=== PATIENT | female | born 1955 | race African-American/Black ===

== ENCOUNTER 2016-10-25 10:05 | Emergency (ER) | payer SELFPAY ==
[2016-10-25] MEDS ORDERED: IPRATRPIUM/ALBUTEROL 0.5/2.5MG 3 ML NEBU. NEB ONE (10:30)
[2016-10-25] MEDS ORDERED: methylPREDNISolone SOD SUCC PF 125 MG/2 ML VIAL. IV ONE (10:30)
--- NOTE | 2016-10-25 10:57 | RAD ---
Portable chest, 10/25/2016: History: Shortness of breath Comparison is made to a study from 04/09/2012. The heart size and pulmonary vascularity are normal. There are prominent stiven calcifications in the mediastinum and at the right hilum compatible with old granulomatous disease. There is tortuosity and calcific plaquing of the thoracic aorta. There is a calcified granuloma in the right parahilar region. No acute infiltrates are seen. There is no evidence of pleural fluid. IMPRESSION: No acute cardiopulmonary abnormality is detected.
[2016-10-25 11:00] LABS: BASO # 0.1 x10^3/uL (0.0-0.2); BASO % 1 % (0-3); EOS % 4 % (0-3); HEMOGLOBIN 14.2 g/dL (12.0-15.5); LYMPH % 30 % (24-48); MEAN CORPUSCULAR HEMOGLOBIN 27 pg (25-35); MEAN CORPUSCULAR HGB CONC 34 g/dL (31-37); MEAN CORPUSCULAR VOLUME 81 fL (79-100); MONO % 8 % (0-9); NEUT % 57 % (31-73); PLATELET COUNT 280 x10^3/uL (140-400); RED BLOOD COUNT 5.21 x10^6/uL (3.50-5.40); RED CELL DISTRIBUTION WIDTH 17.6 % (11.5-14.5); WHITE BLOOD COUNT 6.9 x10^3/uL (4.0-11.0)
[2016-10-25 11:11] LABS: CALCIUM 9.4 mg/dL (8.5-10.1); CREATININE 1.7 mg/dL (0.6-1.0); POTASSIUM 3.7 mmol/L (3.5-5.1)
[2016-10-25 11:18] LABS: ALBUMIN 3.8 g/dL (3.4-5.0); ALBUMIN/GLOBULIN RATIO 0.9 (1.0-1.7); TOTAL BILIRUBIN 0.4 mg/dL (0.2-1.0); TOTAL PROTEIN 8.2 g/dL (6.4-8.2)
--- NOTE | 2016-10-25 11:29 | ED.ADGEN ---
Past Medical History Past Medical History: COPD, Hypertension Past Surgical History: Other Alcohol Use: Occasionally Drug Use: None Adult General Chief Complaint Chief Complaint: SHORTNESS OF BREATH HPI HPI Patient is a 61 year old woman, history of COPD, hypertension, who presents to the emergency department with complaint of shortness of breath. Patient states that she been feeling short of breath several days ago, she ran out of her inhalers. She is recently moved to the area does not a primary care provider. Patient complaining of wheezing, nonproductive cough, denies any fevers, any chills, any chest pain, any nausea or vomiting, any sick contacts or exposures. No recent travel or surgery, no history of DVT or PE. She states that she takes albuterol and Spiriva and "purple pill" at home for her asthma. Review of Systems Review of Systems Constitutional: Denies fever or chills. [] Eyes: Denies change in visual acuity. [] HENT: Denies nasal congestion or sore throat. [] Respiratory: Nonproductive cough, shortness of breath worsening over the past several days. Cardiovascular: Denies chest pain or edema. [] GI: Denies abdominal pain, nausea, vomiting, bloody stools or diarrhea. [] : Denies dysuria. [] Musculoskeletal: Denies back pain or joint pain. [] Integument: Denies rash. [] Neurologic: Denies headache, focal weakness or sensory changes. [] Endocrine: Denies polyuria or polydipsia. [] Lymphatic: Denies swollen glands. [] Psychiatric: Denies depression or anxiety. [] Current Medications Current Medications Current Medications Medications (Trade) Dose Ordered Sig/Summer Start Time Stop Time Status Last Admin Dose Admin Albuterol/ Ipratropium (Duoneb) 3 ml 1X ONCE 10/25/16 10:30 10/25/16 10:31 DC 10/25/16 10:23 3 ML Methylprednisolone Sodium Succinate (Solu-Medrol 125mg Vial) 125 mg 1X ONCE 10/25/16 10:30 10/25/16 10:31 DC 10/25/16 10:37 125 MG Allergies Allergies Allergies Coded Allergies Type Severity Reaction Last Updated Verified No Known Drug Allergies 10/25/16 No Physical Exam Physical Exam Constitutional: Well developed, well nourished, anxious, mild respiratory distress, non-toxic appearance. [] HENT: Normocephalic, atraumatic, bilateral external ears normal, oropharynx moist, no oral exudates, nose normal. [] Eyes: PERRLA, EOMI, conjunctiva normal, no discharge. [] Neck: Normal range of motion, no tenderness, supple, no stridor. [] Cardiovascular:Heart rate regular rhythm, no murmur, S1, S2, mild tachycardic. No rubs or gallops. [] Lungs & Thorax: Diminished breath sounds at bases bilaterally, mild scattered wheezing noted, no rhonchi or rales. No chest wall tenderness or crepitus. [] Abdomen: Bowel sounds normal, soft, no rebound, rigidity, no guarding, no tenderness, no masses, no pulsatile masses. [] Skin: Warm, dry, no erythema, no rash. [] Back: No tenderness, no CVA tenderness. [] Extremities: No tenderness, no cyanosis, no clubbing, ROM intact, no edema. Negative Homans sign. [] Neurologic: Alert and oriented X 3, normal motor function, normal sensory function, no focal deficits noted. [] Psychologic: Affect normal, judgement normal, mood normal. [] Current Patient Data Vital Signs Vital Signs Date Time Temp Pulse Resp B/P Pulse Ox O2 Delivery O2 Flow Rate FiO2 10/25/16 11:43 90 126/84 97 10/25/16 10:25 Nasal Cannula 2.0 10/25/16 10:20 98.0 28 98.0 Lab Values Laboratory Tests Test 10/25/16 10:43 10/25/16 11:05 White Blood Count 6.9x10^3/uL (4.0-11.0) Red Blood Count 5.21x10^6/uL (3.50-5.40) Hemoglobin 14.2g/dL (12.0-15.5) Hematocrit 42.0% (36.0-47.0) Mean Corpuscular Volume 81fL (79-100) Mean Corpuscular Hemoglobin 27pg (25-35) Mean Corpuscular Hemoglobin Concent 34g/dL (31-37) Red Cell Distribution Width 17.6% (11.5-14.5) H Platelet Count 280x10^3/uL (140-400) Neutrophils (%) (Auto) 57% (31-73) Lymphocytes (%) (Auto) 30% (24-48) Monocytes (%) (Auto) 8% (0-9) Eosinophils (%) (Auto) 4% (0-3) H Basophils (%) (Auto) 1% (0-3) Neutrophils # (Auto) 4.0x10^3uL (1.8-7.7) Lymphocytes # (Auto) 2.0x10^3/uL (1.0-4.8) Monocytes # (Auto) 0.6x10^3/uL (0.0-1.1) Eosinophils # (Auto) 0.3x10^3/uL (0.0-0.7) Basophils # (Auto) 0.1x10^3/uL (0.0-0.2) Sodium Level 144mmol/L (136-145) Potassium Level 3.7mmol/L (3.5-5.1) Chloride Level 105mmol/L (98-107) Carbon Dioxide Level 30mmol/L (21-32) Anion Gap 9 (6-14) Blood Urea Nitrogen 13mg/dL (7-20) Creatinine 1.7mg/dL (0.6-1.0) H Estimated GFR (Cockcroft-Gault) 37.0 BUN/Creatinine Ratio 8 (6-20) Glucose Level 106mg/dL (70-99) H Calcium Level 9.4mg/dL (8.5-10.1) Total Bilirubin 0.4mg/dL (0.2-1.0) Aspartate Amino Transferase (AST) 25U/L (15-37) Alanine Aminotransferase (ALT) 27U/L (14-59) Alkaline Phosphatase 99U/L (46-116) Troponin I Quantitative < 0.017ng/mL (0.000-0.055) BA-Rrm-D-Type Natriuretic Peptide 43pg/mL (0-124) Total Protein 8.2g/dL (6.4-8.2) Albumin 3.8g/dL (3.4-5.0) Albumin/Globulin Ratio 0.9 (1.0-1.7) L Influenza Type A Antigen Negative (NEGATIVE) Influenza Type B Antigen Negative (NEGATIVE) Laboratory Tests 10/25/16 10:43 Laboratory Tests 10/25/16 10:43 EKG EKG EC: Sinus tachycardia, heart rate 110 beats minute, left axis deviation, QTC of 477, ID 1:30, QRS of 90, moderate baseline artifact noted secondary to respiratory motion. No ST elevations or depressions, no evidence of acute ST abnormalities. Does not meet STEMI criteria. As interpreted by me. Radiology/Procedures Radiology/Procedures [] [facility] [address] [place] [address] IMAGING REPORT Signed PATIENT: WILMER SUAREZ ACCOUNT: [id number] : 1955 LOCATION: ER AGE: 61 SEX: F EXAM STATUS: REG ER ORD. PHYSICIAN: AZUCENA PHIPPS DO REASON: SOA PROCEDURE: PORTABLE CHEST 1V Portable chest, 10/25/2016: History: Shortness of breath Comparison is made to a study from 04/09/2012. The heart size and pulmonary vascularity are normal. There are prominent stiven calcifications in the mediastinum and at the right hilum compatible with old granulomatous disease. There is tortuosity and calcific plaquing of the thoracic aorta. There is a calcified granuloma in the right parahilar region. No acute infiltrates are seen. There is no evidence of pleural fluid. IMPRESSION: No acute cardiopulmonary abnormality is detected. DICTATED and SIGNED BY: ISA GERMAIN MD DATE: 10/25/16 1050 CC: AZUCENA PHIPPS DO; NO PCP ~ Course & Med Decision Making Course & Med Decision Making Pertinent Labs and Imaging studies reviewed. (See chart for details) Once patient became less anxious, respiratory rate improved improved, oxygen saturation at that point in 2 L was 99-100%. Symptoms began after she ran out of her medication, and also with the weather changes. Patient received a DuoNeb in the ED, and a dose of Solu-Medrol. On reevaluation she states she feels "10 times better". Patient ambulated in the emergency department, oxygen saturation between 92-95%, heart rate in the 90s to low 100s, after receiving albuterol. She denies any shortness of breath or other concerns. Patient states she is ready to be discharged home. I did discuss with the patient that she'll need to establish a new primary care provider, and she was given a list of available providers in the area. Patient has all medications at home except for her cerebral and her albuterol inhaler, therefore she was written a prescription for these 2 medications, and also for a 4 day course of prednisone , 40 mg once daily. We did discuss concerning symptoms that prompt return to the emergency department, patient voiced understanding and agreement, discharged home in stable condition with plan as above. Dragon Disclaimer Dragon Disclaimer This electronic medical record was generated, in whole or in part, using a voice recognition dictation system. Departure Impression: Primary Impression: COPD with exacerbation Disposition: HOME, SELF-CARE Condition: IMPROVED Scripts Prednisone 20 Mg Tablet2 Tab PO DAILY #8 TAB Prov:AZUCENA PHIPPS DO 10/25/16 Albuterol Sulfate (Ventolin Hfa Inhaler)18 Gm Hfa.aer.ad2 Puff INH Q4HRS FOR ASTHMA #1 INHALER Ref 0 Prov:AZUCENA PHIPPS DO 10/25/16 Tiotropium [place] (Spiriva)18 Mcg Cap.w.dev1 Cap IH DAILY #30 CAP Ref 0 Prov:AZUCENA PHIPPS DO 10/25/16 AZUCENA PHIPPS DO Oct 25, 2016 11:29
[2016-10-25 11:43] VITALS: BP 126/84
[2016-10-25 11:48] LABS: OBC FLU VALID
--- NOTE | 2016-10-25 12:23 | EKG ---
[facility] [address] [place] [address] Test Date: 2016-10-25 Test Time: 10:43:27 Pat Name: WILMER SUAREZ Department: Room: Gender: F [employer]: : 1955 Requested By: AZUCENA PHIPPS Order Number: [id number] Reading MD: Marika Shaw Measurements Intervals [place] Rate: 110 P: 38 TX: 130 QRS: -17 QRSD: 90 T: 87 QT: 348 QTc: 477 Interpretive Statements SINUS TACHYCARDIA LEFTWARD AXIS QRS(T) CONTOUR ABNORMALITY CONSIDER ANTEROLATERAL MYOCARDIAL DAMAGE RI6.01 Unconfirmed report Compared to ECG 04/09/2012 14:42:10 Left-axis deviation now present Electronically Signed On 10-28-2016 20:04:44 [employer] by Marika Shaw
[2016-10-25] MEDS ORDERED: VENTOLIN HFA18 GM INH (12:41)
[2016-10-25] MEDS ORDERED: TIOT18CA IH (12:41)
[2016-10-25] MEDS ORDERED: PRED20TA PO (12:41)
== END 2016-10-25 13:12 | disposition home or self-care (01) ==
LOC: ER 10:05
DX: J44.1 Chronic obstructive pulmonary disease with (acute) exacerbation (principal); I10 Essential (primary) hypertension
CPT/HCPCS: 36415; 71010; 80053; 83880; 84484; 85027; 87804; 93005; 94640; 96374; 99285; J2930; J7620

== ENCOUNTER 2018-03-13 12:26 | Emergency (ER) | payer OTHER | END 2018-03-13 12:51 | disposition home or self-care (01) | LOC: ER 12:26 | DX: S61.214D Laceration without foreign body of right ring finger without damage to nail, subsequent encounter (principal); I10 Essential (primary) hypertension; J44.9 Chronic obstructive pulmonary disease, unspecified; F17.210 Nicotine dependence, cigarettes, uncomplicated; X58.XXXD Exposure to other specified factors, subsequent encounter | CPT/HCPCS: 99284 ==

== ENCOUNTER 2019-01-30 11:45 | Emergency (ER) | payer OTHER ==
[~2019-01-30] VITALS: Ht 157.5 cm; Wt 66.7 kg
[~2019-01-30 11:45] MED LIST: ALBU2.5V8 INH; AMLO10TA4 PO; AMOX1TAB58 PO; BENZ-8 PO; FLUT1DIS3 IH; GUAI5SYR PO; LISI-130 PO; Nicotine 21MG TD; PRED20TA PO; TIOT18CA IH; VENTOLIN HFA18 GM INH
--- NOTE | 2019-01-30 13:28 | RAD ---
PORTABLE CHEST 1V Clinical indications: High blood pressure and dizziness. COMPARISON: January 25, 2019. Findings: There is mild blunting of the lateral costophrenic angles bilaterally which may indicate small pleural effusions. Interstitial lung infiltrates or pulmonary edema seen previously have resolved. No new lung infiltrate is seen. No pneumothorax is evident. The heart size, pulmonary vasculature, mediastinum and both luciana are stable. Impression: Small bilateral pleural effusions. Electronically signed by: Dwight Rush MD (01/30/2019 1:25 PM) [id number]
--- NOTE | 2019-01-30 13:40 | PHYS DOC ---
Past Medical History Past Medical History: COPD, Hypertension Past Surgical History: Hysterectomy Alcohol Use: Occasionally Drug Use: Marijuana Adult General Chief Complaint Chief Complaint: DIZZY/LIGHT HEADED HPI HPI Patient is a 63 year old female who brought in by EMS because of dizziness and high blood pressure. Patient states she has blood pressure of 150/ 100 yesterday and today home health care staff recorded her blood pressure as 170/100 with mild dizziness and headache. Patient denies chest pain, shortness of breath, focal neuro deficit, nausea and vomiting, missing her medication. Review of Systems Review of Systems Constitutional: Denies fever or chills [] Eyes: Denies change in visual acuity, redness, or eye pain [] HENT: Denies nasal congestion or sore throat [] Respiratory: Denies cough or shortness of breath [] Cardiovascular: No additional information not addressed in HPI [] GI: Denies abdominal pain, nausea, vomiting, bloody stools or diarrhea [] : Denies dysuria or hematuria [] Musculoskeletal: Denies back pain or joint pain [] Integument: Denies rash or skin lesions [] Neurologic: Reports dizziness and headache, denies focal weakness or sensory changes [] Endocrine: Denies polyuria or polydipsia [] All other systems were reviewed and found to be within normal limits, except as documented in this note. Allergies Allergies Allergies Coded Allergies Type Severity Reaction Last Updated Verified No Known Drug Allergies 10/25/16 No Physical Exam Physical Exam Constitutional: Well developed, well nourished, mild distress, non-toxic appearance. [] HENT: Normocephalic, atraumatic, oropharynx moist. Eyes: PERRLA, EOMI, conjunctiva normal, no discharge. [] Neck: Normal range of motion, no tenderness, supple, no stridor. [] Cardiovascular: Bradycardia, no murmur [] Lungs & Thorax: Bilateral breath sounds clear to auscultation [] Abdomen: Bowel sounds normal, soft, no tenderness, no masses, no pulsatile masses. [] Skin: Warm, dry, no erythema, no rash. [] Back: No tenderness, no CVA tenderness. [] Extremities: No tenderness, no cyanosis, no clubbing, ROM intact, no edema. [] Neurologic: Alert and oriented X 3, normal motor function, normal sensory function, no focal deficits noted. [] Psychologic: Affect normal, judgement normal, mood normal. [] Current Patient Data Vital Signs Vital Signs Date Time Temp Pulse Resp B/P (MAP) Pulse Ox O2 Delivery O2 Flow Rate FiO2 01/30/19 15:45 88 14 96 01/30/19 11:52 98.1 151/92 (111) Room Air 98.1 Lab Values Laboratory Tests Test 01/30/19 13:35 01/30/19 14:50 White Blood Count 17.8 x10^3/uL (4.0-11.0) H Red Blood Count 5.28 x10^6/uL (3.50-5.40) Hemoglobin 14.6 g/dL (12.0-15.5) Hematocrit 44.4 % (36.0-47.0) Mean Corpuscular Volume 84 fL (79-100) Mean Corpuscular Hemoglobin 28 pg (25-35) Mean Corpuscular Hemoglobin Concent 33 g/dL (31-37) Red Cell Distribution Width 16.9 % (11.5-14.5) H Platelet Count 337 x10^3/uL (140-400) Neutrophils (%) (Auto) 89 % (31-73) H Lymphocytes (%) (Auto) 7 % (24-48) L Monocytes (%) (Auto) 3 % (0-9) Eosinophils (%) (Auto) 0 % (0-3) Basophils (%) (Auto) 0 % (0-3) Neutrophils # (Auto) 15.9 x10^3uL (1.8-7.7) H Lymphocytes # (Auto) 1.3 x10^3/uL (1.0-4.8) Monocytes # (Auto) 0.5 x10^3/uL (0.0-1.1) Eosinophils # (Auto) 0.0 x10^3/uL (0.0-0.7) Basophils # (Auto) 0.1 x10^3/uL (0.0-0.2) Sodium Level 141 mmol/L (136-145) Potassium Level 4.4 mmol/L (3.5-5.1) Chloride Level 100 mmol/L (98-107) Carbon Dioxide Level 33 mmol/L (21-32) H Anion Gap 8 (6-14) Blood Urea Nitrogen 26 mg/dL (7-20) H Creatinine 1.5 mg/dL (0.6-1.0) H Estimated GFR (Cockcroft-Gault) 42.4 BUN/Creatinine Ratio 17 (6-20) Glucose Level 118 mg/dL (70-99) H Calcium Level 9.8 mg/dL (8.5-10.1) Total Bilirubin 0.3 mg/dL (0.2-1.0) Aspartate Amino Transferase (AST) 17 U/L (15-37) Alanine Aminotransferase (ALT) 37 U/L (14-59) Alkaline Phosphatase 98 U/L (46-116) Troponin I Quantitative < 0.017 ng/mL (0.000-0.055) UU-Foc-O-Type Natriuretic Peptide 53 pg/mL (0-124) Total Protein 7.1 g/dL (6.4-8.2) Albumin 3.4 g/dL (3.4-5.0) Albumin/Globulin Ratio 0.9 (1.0-1.7) L Urine Collection Type Unknown Urine Color Yellow Urine Clarity Cloudy Urine pH 7.0 Urine Specific [place] 1.015 Urine Protein Negative mg/dL (NEG-TRACE) Urine Glucose (UA) Negative mg/dL (NEG) Urine Ketones (Stick) Negative mg/dL (NEG) Urine Blood Negative (NEG) Urine Nitrite Negative (NEG) Urine Bilirubin Negative (NEG) Urine Urobilinogen Dipstick 0.2 mg/dL (0.2 mg/dL) Urine Leukocyte Esterase Negative (NEG) Urine RBC 0 /HPF (0-2) Urine WBC 0 /HPF (0-4) Urine Squamous Epithelial Cells Few /LPF Urine Bacteria 0 /HPF (0-FEW) Urine Hyaline Casts Few /HPF Urine Mucus Slight /LPF Laboratory Tests 01/30/19 13:35 Laboratory Tests 01/30/19 13:35 EKG EKG EKG interpreted by me. EKG at 1322 showed sinus bradycardia at rate of 45, abnormal left axis deviation, LVH, no acute ST and T-wave abnormalities.[] Radiology/Procedures Radiology/Procedures EKG interpreted by me. EKG at 1304 showed normal sinus rhythm at rate of 81, abnormal left axis deviation, left anterior fascicular block, poor R-wave progress in anteroseptal this, no acute ST and T-wave abnormalities. Course & Med Decision Making Course & Med Decision Making Pertinent Labs and Imaging studies reviewed. (See chart for details) Evaluation of patient in ER showed 3-year-old male patient with complaining of fluctuation of blood pressure and dizziness. Patient had blood pressure of 130s and 150s while she was in ER. Labs was unremarkable. Patient was advised to take extra pills of blood pressure medication for elevation of blood pressure. Ronaldo kurtz was advised to follow-up with her primary care physician regarding management of her blood pressure. Dragon Disclaimer Dragon Disclaimer This electronic medical record was generated, in whole or in part, using a voice recognition dictation system. Departure Departure Impression: Primary Impression: Uncontrolled hypertension Disposition: HOME, SELF-CARE (1539) Condition: IMPROVED Referrals: NO PCP (PCP) Patient Instructions: Form - Blood Pressure Record Sheet, How to Take Your Blood Pressure, [id number], Hypertension, Managing Your High Blood Pressure Additional Instructions: Drink plenty of liquids Follow-up with your primary care physician in 3-5 days Return to ER if not getting better Continue current medication DIANE MEANS MD January 30, 2019 13:40
[2019-01-30 13:47] LABS: BASO # 0.1 x10^3/uL (0.0-0.2); BASO % 0 % (0-3); EOS % 0 % (0-3); HEMATOCRIT 44.4 % (36.0-47.0); HEMOGLOBIN 14.6 g/dL (12.0-15.5); LYMPH # 1.3 x10^3/uL (1.0-4.8); LYMPH % 7 % (24-48); MEAN CORPUSCULAR HEMOGLOBIN 28 pg (25-35); MEAN CORPUSCULAR HGB CONC 33 g/dL (31-37); MEAN CORPUSCULAR VOLUME 84 fL (79-100); MONO # 0.5 x10^3/uL (0.0-1.1); MONO % 3 % (0-9); NEUT # 15.9 x10^3uL (1.8-7.7); NEUT % 89 % (31-73); PLATELET COUNT 337 x10^3/uL (140-400); RED BLOOD COUNT 5.28 x10^6/uL (3.50-5.40); RED CELL DISTRIBUTION WIDTH 16.9 % (11.5-14.5); WHITE BLOOD COUNT 17.8 x10^3/uL (4.0-11.0)
[2019-01-30 13:55] LABS: CALCIUM 9.8 mg/dL (8.5-10.1); CREATININE 1.5 mg/dL (0.6-1.0); GFR 42.4; POTASSIUM 4.4 mmol/L (3.5-5.1)
[2019-01-30 14:01] LABS: ALBUMIN 3.4 g/dL (3.4-5.0); ALBUMIN/GLOBULIN RATIO 0.9 (1.0-1.7); TOTAL BILIRUBIN 0.3 mg/dL (0.2-1.0); TOTAL PROTEIN 7.1 g/dL (6.4-8.2)
--- NOTE | 2019-01-30 14:03 | RAD ---
CT HEAD INDICATION: Hypertensive patient, dizziness COMPARISON: 03/01/2018 Exposure: One or more of the following individualized dose reduction techniques were utilized for this examination: 1. Automated exposure control 2. Adjustment of the mA and/or kV according to patient size 3. Use of iterative reconstruction technique TECHNIQUE: 5 mm contiguous axial images were obtained from the skull base to the vertex in both bone and soft tissue algorithm. FINDINGS: Mild bilateral periventricular white matter hypodensities likely chronic small vessel ischemic disease. No evidence of acute intracranial hemorrhage. No extra-axial fluid collections. No mass effect or midline shift. Ventricular size is appropriate. Basal cisterns are patent. No fractures identified.Iglesias-white differentiation is preserved.Globes and orbits are within normal limits. Paranasal sinuses and mastoid air cells are clear. IMPRESSION: No acute intracranial findings. Electronically signed by: Jin Sidhu MD (01/30/2019 2:00 PM) [place] [id number]
--- NOTE | 2019-01-30 14:54 | EKG ---
[facility] [address] [place] [address] Test Date: 2019-01-30 Test Time: 13:04:56 Pat Name: WILMER SUAREZ Department: Room: Gender: F Title Supervisor: : 1955 Requested By: DIANE MEANS Order Number: [id number] Reading MD: Measurements Intervals [place] Rate: 81 P: 38 AL: 134 QRS: -30 QRSD: 88 T: 52 QT: 400 QTc: 471 Interpretive Statements SINUS RHYTHM ABNORMAL LEFT AXIS DEVIATION LEFT ANTERIOR FASCICULAR BLOCK QRS(T) CONTOUR ABNORMALITY CONSIDER ANTEROSEPTAL MYOCARDIAL DAMAGE ABNORMAL ECG RI6.01 Unconfirmed report No previous ECG available for comparison
[2019-01-30 14:57] LABS: BILIRUBIN,URINE NEGATIVE (NEG); CLARITY,URINE CLOUDY; COLOR,URINE YELLOW; NITRITE,URINE NEGATIVE (NEG); PROTEIN,URINE NEGATIVE (NEG-TRACE); UROBILINOGEN,URINE 0.2 mg/dL (0.2 mg/dL)
[2019-01-30 15:02] LABS: HYALINE CASTS, URINE FEW /HPF; SQUAMOUS EPITHELIAL CELL,UR FEW /LPF
[2019-01-30 15:03] LABS: BACTERIA,URINE 0 /HPF (0-FEW); RBC,URINE 0 /HPF (0-2); WBC,URINE 0 /HPF (0-4)
[2019-01-30 15:45] VITALS: BP 150/90
== END 2019-01-30 16:12 | disposition home or self-care (01) ==
LOC: ER 11:45
DX: R42 Dizziness and giddiness (principal); I10 Essential (primary) hypertension; R51 Headache; R00.1 Bradycardia, unspecified; J44.9 Chronic obstructive pulmonary disease, unspecified; Z90.710 Acquired absence of both cervix and uterus
CPT/HCPCS: 36415; 70450; 71045; 80053; 81001; 83880; 84484; 85025; 93005; 99285-25

== ENCOUNTER → 2020-06-02 | Outpatient (CLI) | payer OTHER ==
[2019-02-19 13:25] VITALS: BP 163/91
[~2020-06-02] MED LIST changes: +AMOX1TAB61 PO; +BENZ100C PO
--- NOTE | 2020-06-02 16:14 | KCIC ---
INDICATION: Reason: Chronic Kidney Disease Stage III / Spl. Instructions: / History: COMPARISON: None. TECHNIQUE: Grayscale and color ultrasound images obtained of the bilateral kidneys and bladder. FINDINGS: Right Kidney: 84 mm. No hydronephrosis. Left Kidney: 88 mm. No hydronephrosis. Somewhat limited visualization secondary to overlying structures obscuring. Bladder: Partially distended at time of exam IMPRESSION: * No hydronephrosis bilaterally. Electronically signed by: Joseluis Mendiola MD (06/02/2020 4:11 PM) [id number]
== END ==
LOC: KCIC US 15:39
PROVIDERS: ATTEND Registered Nurse
DX: N18.30 Chronic kidney disease, stage 3 unspecified (principal)
CPT/HCPCS: 76770

== ENCOUNTER 2020-07-09 14:34 | Inpatient (IN) | payer OTHER ==
[2020-07-08 23:30] VITALS: BP 106/67
[~2020-07-09] VITALS: Ht 162.6 cm; Wt 135.7 kg
[~2020-07-09 14:34] MED LIST changes: +MORPHINE SULFATE 4 MG/ML VIAL. IV PRN
[2020-07-09 15:25] LABS: BASO % 1 % (0-3); EOS % 0 % (0-3); HEMATOCRIT 36.3 % (36.0-47.0); HEMOGLOBIN 12.6 g/dL (12.0-15.5); LYMPH # 0.8 x10^3/uL (1.0-4.8); LYMPH % 21 % (24-48); MEAN CORPUSCULAR HEMOGLOBIN 28 pg (25-35); MEAN CORPUSCULAR HGB CONC 35 g/dL (31-37); MEAN CORPUSCULAR VOLUME 82 fL (79-100); MONO # 0.5 x10^3/uL (0.0-1.1); MONO % 13 % (0-9); NEUT # 2.4 x10^3/uL (1.8-7.7); NEUT % 65 % (31-73); PLATELET COUNT 190 x10^3/uL (140-400); RED BLOOD COUNT 4.44 x10^6/uL (3.50-5.40); RED CELL DISTRIBUTION WIDTH 16.3 % (11.5-14.5); WHITE BLOOD COUNT 3.7 x10^3/uL (4.0-11.0)
--- NOTE | 2020-07-09 16:07 | RAD ---
Exam: Chest one view INDICATION: Dizzy TECHNIQUE: Frontal view of the chest Comparisons: 02/19/2019 FINDINGS: Heart is mildly enlarged. Pulmonary vessels are within normal limits. Hazy bibasilar airspace disease. Numerous calcified hilar lymph nodes are noted. IMPRESSION: Hazy opacity lung bases bilaterally, may relate to atelectasis. Electronically signed by: Alanna Flores MD (07/09/2020 4:04 PM) [id number]
[2020-07-09 16:09] LABS: CALCIUM 8.4 mg/dL (8.5-10.1); CREATININE 2.5 mg/dL (0.6-1.0); GFR 23.5
[2020-07-09 16:14] LABS: POTASSIUM 2.8 mmol/L (3.5-5.1)
[2020-07-09] MEDS ORDERED: POTASSIUM CHLORIDE 20 MEQ TABLET.ER. PO ONE (16:15)
[2020-07-09] MEDS ORDERED: IV NORMAL SALINE 1000ML BAG 1,000 ML IV ONE (16:45)
[2020-07-09] MEDS: POTASSIUM CHLORIDE 10MEQ 100 ML IV SCH ×2 (17:02→18:00)
--- NOTE | 2020-07-09 17:30 | ED.ADGEN ---
Past Medical History Past Medical History: COPD, Hypertension Past Surgical History: Hysterectomy Smoking Status: Former Smoker Alcohol Use: None Drug Use: Marijuana General Adult EDM: Chief Complaint: MULTIPLE COMPLAINTS HPI: HPI: Patient is 64-year-old female who presents to the emergency room with 1 week of dizziness. Dizziness is worse if she tries to stand and will walk around. She states that it comes and goes. It feels like spinning but also like she may pass out. She denies any nausea, vomiting, abdominal pain, neck pain, trauma, head pain, chest pain, shortness of breath, fever, chills, sweats, cough. She has never had anything like this previously. No recent changes to medications. Review of Systems: Review of Systems: Complete ROS is negative unless otherwise documented in HPI Current Medications: Current Medications Medications (Trade) Dose Ordered Sig/Summer Start Time Stop Time Status Last Admin Dose Admin Potassium Chloride/Water 100 ml @ 50 mls/hr Q1HR 07/09/20 17:00 07/09/20 18:59 07/09/20 17:02 50 MLS/HR Potassium Chloride (Klor-Con) 40 meq 1X ONCE 07/09/20 16:15 07/09/20 16:20 DC 07/09/20 17:14 40 MEQ Sodium Chloride 1,000 ml @ 1,000 mls/hr 1X ONCE 07/09/20 16:45 07/09/20 17:44 07/09/20 17:02 1,000 MLS/HR Allergies: Allergies: Allergies Coded Allergies Type Severity Reaction Last Updated Verified No Known Drug Allergies 10/25/16 No Physical Exam: PE: General: Awake, alert, NAD. Well Nourished, well hydrated. Cooperative HEENT: Atraumatic, EOMI, PERRL, airway patent, moist oral mucosa Neck: Supple, trachea midline Respiratory: CTA bilaterally, normal effort, no wheezing/crackles CV: RRR, no murmur, cap refill <2 GI: Soft, nondistended, nontender, no masses MSK: No obvious deformities Skin: Warm, dry, intact Neuro: A&O x3, speech NL, 5/5 strength in BUE/BLE distally and proximally, CN 2- 12 intact, cerebellar testing normal Psych: Normal affect, normal mood, not suicidal or homicidal Current Patient Data: Labs: Laboratory Tests Test 07/09/20 15:17 11/7/20 15:52 White Blood Count 3.7 x10^3/uL (4.0-11.0) L Red Blood Count 4.44 x10^6/uL (3.50-5.40) Hemoglobin 12.6 g/dL (12.0-15.5) Hematocrit 36.3 % (36.0-47.0) Mean Corpuscular Volume 82 fL (79-100) Mean Corpuscular Hemoglobin 28 pg (25-35) Mean Corpuscular Hemoglobin Concent 35 g/dL (31-37) Red Cell Distribution Width 16.3 % (11.5-14.5) H Platelet Count 190 x10^3/uL (140-400) Neutrophils (%) (Auto) 65 % (31-73) Lymphocytes (%) (Auto) 21 % (24-48) L Monocytes (%) (Auto) 13 % (0-9) H Eosinophils (%) (Auto) 0 % (0-3) Basophils (%) (Auto) 1 % (0-3) Neutrophils # (Auto) 2.4 x10^3/uL (1.8-7.7) Lymphocytes # (Auto) 0.8 x10^3/uL (1.0-4.8) L Monocytes # (Auto) 0.5 x10^3/uL (0.0-1.1) Eosinophils # (Auto) 0.0 x10^3/uL (0.0-0.7) Basophils # (Auto) 0.0 x10^3/uL (0.0-0.2) Sodium Level 134 mmol/L (136-145) L Potassium Level 2.8 mmol/L (3.5-5.1) *L Chloride Level 93 mmol/L (98-107) L Carbon Dioxide Level 34 mmol/L (21-32) H Anion Gap 7 (6-14) Blood Urea Nitrogen 31 mg/dL (7-20) H Creatinine 2.5 mg/dL (0.6-1.0) H Estimated GFR (Cockcroft-Gault) 23.5 Glucose Level 101 mg/dL (70-99) H Calcium Level 8.4 mg/dL (8.5-10.1) L Troponin I Quantitative < 0.017 ng/mL (0.000-0.055) Laboratory Tests 07/09/20 15:17 Laboratory Tests 07/09/20 15:52 Vital Signs: Vital Signs Date Time Temp Pulse Resp B/P (MAP) Pulse Ox O2 Delivery O2 Flow Rate FiO2 07/09/20 14:35 99.4 100 24 163/91 (115) 100 Room Air 99.4 EKG: EKG: [] Heart Score: Risk Factors: Risk Factors: DM, Current or recent (<one month) smoker, HTN, HLP, family history of CAD, obesity. Risk Scores: Score 0 - 3: 2.5% MACE over next 6 weeks - Discharge Home Score 4 - 6: 20.3% MACE over next 6 weeks - Admit for Clinical Observation Score 7 - 10: 72.7% MACE over next 6 weeks - Early Invasive Strategies Radiology/Procedures: Radiology/Procedures: [] Course & Med Decision Making: Course & Med Decision Making Pertinent Labs and Imaging studies reviewed. (See chart for details) Patient is 64-year-old female who presents to the emergency room complaining of lightheadedness. Overall exam is benign. Work-up was ordered including CBC, BMP, EKG, chest x-ray to evaluate for electrolyte abnormalities, anemia, arrhythmias. Patient does have hypokalemia and acute kidney injury when comp ared to labs last year. She will be given fluids and admitted to the hospital. Gaudencioon Disclaimer: Everette Disclaimer: This electronic medical record was generated, in whole or in part, using a voice recognition dictation system. Departure Departure Impression: Primary Impression: Acute kidney injury Additional Impressions: Hypokalemia Dizziness Disposition: ADMITTED INPT THIS HOSP Condition: STABLE Referrals: TABBY GOMEZ APRN (PCP) Problem Qualifiers PAMELA FRAZIER MD Jul 09, 2020 17:30
[2020-07-09] MEDS ORDERED: DOCUSATE SODIUM 100 MG CAPSULE. PO PRN (17:45)
[2020-07-09] MEDS ORDERED: ONDANSETRON PF 4 MG/2 ML VIAL. IVP PRN (17:45)
[2020-07-09] MEDS ORDERED: DEXTROSE 50% 25 GM / 50ML DISP.SYRIN. IV PRN (17:45)
[2020-07-09] MEDS ORDERED: ACETAMINOPHEN 325 MG TABLET. PO PRN (17:45)
[2020-07-09] MEDS ORDERED: SENNOSIDES 8.6 MG TABLET PO PRN (17:45)
--- NOTE | 2020-07-09 17:45 | PDOC1 ---
History and Physical Date of Service: DOS: DATE: 07/09/20 TIME: 17:38 Chief Complaint: Chief Complain: Dizziness and falls History of Present Illness: HPI: Patient is a 64-year-old female with past medical history of hypertension and COPD not on any home O2 who presents with a history of 1 week of dizziness. Patient says dizziness is worse when she tries to stand and walk around. This comes and goes and it also feels like the room is spinning but she also may pass out. Of note, patient also states that she did get up last night to try to get something to eat in the kitchen and she had a sudden drop attack. She elected lose consciousness and her sister woke her up. Patient did fall from standing onto a carpeted floor. Patient did not have any dizzy symptoms prior to her fall. But she continues to be dizzy whenever she moves her head or when she is standing. Denies fevers, shortness of breath, chest pain, abdominal pain, diarrhea or bloody stools. Past Medical/Surgical History: PMH/PSH: Past Medical History: COPD, Hypertension Past Surgical History: Hysterectomy Allergies: Allergies: Coded Allergies: No Known Drug Allergies (Unverified , 10/25/16) Family History: Family History: Reviewed and no relevant findings Social History: Social History: Smoking Status: Former Smoker, quit in December 2019 Alcohol Use: None Drug Use: Marijuana Current Medications: Current Medications Current Medications Potassium Chloride (Klor-Con) 40 meq 1X ONCE PO Last administered on 07/09/20at 17:14; Start 07/09/20 at 16:15; Stop 07/09/20 at 16:20; Status DC Potassium Chloride/Water 100 ml @ 50 mls/hr Q1HR IV Last administered on 07/09/20at 17:02; Start 07/09/20 at 17:00; Stop 07/09/20 at 18:59 Sodium Chloride 1,000 ml @ 1,000 mls/hr 1X ONCE IV Last administered on 07/09/20at 17:02; Start 07/09/20 at 16:45; Stop 07/09/20 at 17:44 Active Scripts Active Tessalon Perle (Benzonatate) 100 Mg Capsule 1 Cap PO TID Ventolin Hfa Inhaler (Albuterol Sulfate) 18 Gm Hfa.aer.ad 2 Puff INH Q4HRS Augmentin 875-125 Tablet (Amoxicillin/Potassium Clav) 1 Each Tablet 1 Tab PO BID Augmentin 500-125 Tablet (Amoxicillin/Potassium Clav) 1 Each Tablet 1 Tab PO BID Guaifenesin Dm Syrup (Guaifenesin/Dextromethorphan) 5 Ml Syrup 10 Ml PO PRN Q6HRS PRN MDD 1 7 Days Benzonatate 100 Mg Capsule 100 Mg PO [id number] MDD 1 7 Days [Nicotine 21MG] 1 PATCH Patch 1 Patch TD PRN DAILY PRN MDD 1 Spiriva (Tiotropium [place]) 18 Mcg Cap.w.dev 1 Cap IH DAILY Reported Norvasc (Amlodipine Besylate) 10 Mg Tablet 10 Mg PO DAILY Lisinopril 40 Mg Tablet 1 Tab PO DAILY Proair Hfa Inhaler (Albuterol Sulfate) 8.5 Gm Hfa.aer.ad 1 Puff INH PRN Q6HRS PRN Advair 250-50 Diskus (Fluticasone/Salmeterol) 1 Each Disk.w.dev 1 Puff IH BID ROS: Review of Systems Review of System REVIEW OF SYSTEMS: GENERAL: Denies weakness SKIN: No bruising, hair changes or rashes. EYES: No blurred, double or loss of vision. NOSE AND THROAT: No history of nosebleeds, hoarseness or sore throat. HEART: No history of palpitations, chest pain or shortness of breath on exertion. LUNGS: Denies cough, hemoptysis, wheezing or shortness of breath. GASTROINTESTINAL: Denies changes in appetite, nausea, vomiting, diarrhea or constipation. GENITOURINARY: No history of frequency, urgency, hesitancy or nocturia. NEUROLOGIC: Denies history of numbness, tingling, or tremor. PSYCHIATRIC: No history of panic, anxiety or depression. ENDOCRINE: No history of heat or cold intolerance, polyuria or polydipsia. EXTREMITIES: Denies joint pain, pain on walking or stiffness. Physical Exam: Vital Signs: Vital Signs Date Time Temp Pulse Resp B/P (MAP) Pulse Ox O2 Delivery O2 Flow Rate FiO2 07/09/20 14:35 99.4 100 24 163/91 (115) 100 Room Air 99.4 Physcial Exam: GEN: No apparent distress. Alert and oriented HEENT: Normal cephalic, atraumatic, external auditory canals are patent EYES: Extraocular muscles are intact, pupil are equally round and reactive to light and accommodation MUSCULOSKELETAL: Well developed , well nourished, good range of motion ENDOCRINE: No thyromegaly was palpated LYMPHATICS: No cervical chain or axillary nodes were noted HEMATOPOIETIC: No bruising NECK: Supple, no JVD, no thyromegaly was noted LUNGS: Clear to auscultation in all lung ovalle without rhonchi or wheezing HEART: RRR, S!, S2 present. Peripheral pulses intact, no obvious murmurs noted ABDOMEN: Soft, nontender. Positive bowel sounds, no organomegaly, normal bowel sounds EXTREMITIES: Without clubbing, cyanosis, or edema. Pedal pulses intact. Negative Homans sign NEUROLOGIC: Normal speech and tone. A&O x 3, moves all extremities, no obvious focal deficits PSYCHIATRIC: Normal affect, normal mood. Stable SKIN: No ulcerations or rashes, good skin turgor, no jaundice VASCULAR: Good capillary refill, neurovascular bundle appears to be intact Labs: Labs: Laboratory Tests Test 07/09/20 15:17 07/09/20 15:52 White Blood Count 3.7 x10^3/uL (4.0-11.0) Red Blood Count 4.44 x10^6/uL (3.50-5.40) Hemoglobin 12.6 g/dL (12.0-15.5) Hematocrit 36.3 % (36.0-47.0) Mean Corpuscular Volume 82 fL (79-100) Mean Corpuscular Hemoglobin 28 pg (25-35) Mean Corpuscular Hemoglobin Concent 35 g/dL (31-37) Red Cell Distribution Width 16.3 % (11.5-14.5) Platelet Count 190 x10^3/uL (140-400) Neutrophils (%) (Auto) 65 % (31-73) Lymphocytes (%) (Auto) 21 % (24-48) Monocytes (%) (Auto) 13 % (0-9) Eosinophils (%) (Auto) 0 % (0-3) Basophils (%) (Auto) 1 % (0-3) Neutrophils # (Auto) 2.4 x10^3/uL (1.8-7.7) Lymphocytes # (Auto) 0.8 x10^3/uL (1.0-4.8) Monocytes # (Auto) 0.5 x10^3/uL (0.0-1.1) Eosinophils # (Auto) 0.0 x10^3/uL (0.0-0.7) Basophils # (Auto) 0.0 x10^3/uL (0.0-0.2) Sodium Level 134 mmol/L (136-145) Potassium Level 2.8 mmol/L (3.5-5.1) Chloride Level 93 mmol/L (98-107) Carbon Dioxide Level 34 mmol/L (21-32) Anion Gap 7 (6-14) Blood Urea Nitrogen 31 mg/dL (7-20) Creatinine 2.5 mg/dL (0.6-1.0) Estimated GFR (Cockcroft-Gault) 23.5 Glucose Level 101 mg/dL (70-99) Calcium Level 8.4 mg/dL (8.5-10.1) Troponin I Quantitative < 0.017 ng/mL (0.000-0.055) Laboratory Tests Test 07/09/20 15:17 07/09/20 15:52 White Blood Count 3.7 x10^3/uL (4.0-11.0) Red Blood Count 4.44 x10^6/uL (3.50-5.40) Hemoglobin 12.6 g/dL (12.0-15.5) Hematocrit 36.3 % (36.0-47.0) Mean Corpuscular Volume 82 fL (79-100) Mean Corpuscular Hemoglobin 28 pg (25-35) Mean Corpuscular Hemoglobin Concent 35 g/dL (31-37) Red Cell Distribution Width 16.3 % (11.5-14.5) Platelet Count 190 x10^3/uL (140-400) Neutrophils (%) (Auto) 65 % (31-73) Lymphocytes (%) (Auto) 21 % (24-48) Monocytes (%) (Auto) 13 % (0-9) Eosinophils (%) (Auto) 0 % (0-3) Basophils (%) (Auto) 1 % (0-3) Neutrophils # (Auto) 2.4 x10^3/uL (1.8-7.7) Lymphocytes # (Auto) 0.8 x10^3/uL (1.0-4.8) Monocytes # (Auto) 0.5 x10^3/uL (0.0-1.1) Eosinophils # (Auto) 0.0 x10^3/uL (0.0-0.7) Basophils # (Auto) 0.0 x10^3/uL (0.0-0.2) Sodium Level 134 mmol/L (136-145) Potassium Level 2.8 mmol/L (3.5-5.1) Chloride Level 93 mmol/L (98-107) Carbon Dioxide Level 34 mmol/L (21-32) Anion Gap 7 (6-14) Blood Urea Nitrogen 31 mg/dL (7-20) Creatinine 2.5 mg/dL (0.6-1.0) Estimated GFR (Cockcroft-Gault) 23.5 Glucose Level 101 mg/dL (70-99) Calcium Level 8.4 mg/dL (8.5-10.1) Troponin I Quantitative < 0.017 ng/mL (0.000-0.055) Images: Images CXR IMPRESSION: Hazy opacity lung bases bilaterally, may relate to atelectasis. Assessment/Plan Assessment/Plan Syncope due to vasovagal etiology versus cardiovascular etiology Lymphopenia Acute electrolyte derangementhyponatremia, hypochloremia, hypokalemia, hypocalcemia likely due to volume depletion Acute on chronic kidney disease renal failure due to hypertension leading to vasomotor nephropathy Prodromal symptoms include dizziness and vertigo Post syncope symptoms include dizziness and vertigo Admit to medicine for further work-up Cardiology consult Pending echocardiogram Continue telemetry monitoring Fall precautions Orthostatic vital signs Hold all centrally acting medications Pending medication reconciliation Pending CT scan of the head Hold heparin for DVT prophylaxis Cardiac diet Full code Discussed with RN and SW Disposition pending inpatient management as above Surrogate decision maker is the sister Justifications for Admission Syncope Indications Is patient dehydrated?: Yes Justification for admission: There is concern that patient may be severely dehydrated accounting for the syncope. Patient needs inpatient level of care for further evaluation and management. Other Justification IGNACIA ST MD Jul 09, 2020 17:45
--- NOTE | 2020-07-09 18:39 | EKG ---
[facility] [address] [place] [address] Test Date: 2020-07-09 Test Time: 15:22:17 Pat Name: WILMER SUAREZ Department: Room: Gender: F Junior Manufacturing Engineer: : [id number] Requested By: PAMELA FRAZIER Order Number: [id number] Reading MD: Bernabe Neely MD Measurements Intervals [place] Rate: 95 P: 42 NE: 138 QRS: -30 QRSD: 88 T: 2 QT: 384 QTc: 486 Interpretive Statements SINUS RHYTHM ATRIAL PREMATURE COMPLEX(ES) ABNORMAL LEFT AXIS DEVIATION LEFT ANTERIOR FASCICULAR BLOCK Electronically Signed On 07-10-2020 14:20:59 [employer]RAVER [employer] by Bernabe Neely MD
--- NOTE | 2020-07-09 19:05 | RAD ---
Exam: CT head INDICATION: Fall with dizziness and loss of consciousness TECHNIQUE: Sequential axial images through the head were obtained without the administration of IV contrast. Comparisons: 01/30/2019 FINDINGS: No focal parenchymal lesion or hemorrhage is identified. There is no midline shift or sulcal effacement. Mild patchy hypodensity in the periventricular white matter, stable from prior. No acute vascular territory infarction is identified. Iglesias-white distinction is preserved. The ventricular system is within normal limits without compression hydrocephalus. The basal cisterns are well maintained. Extra cranial soft tissue scalp contusion overlying the left superior orbital ridge. The visualized portions of the paranasal sinuses and mastoid air cells are well-pneumatized. No acute fractures. IMPRESSION: Extra cranial soft tissue scalp contusion overlying the left superior orbital ridge without underlying osseous or intracranial abnormality. Exposure: One or more of the following in the visualized dose reduction techniques were utilized for this examination: 1. Automated exposure control 2. Adjustment of the MA and/or KV according to patient size Use of iterative of reconstructive technique Electronically signed by: Alanna Flores MD (07/09/2020 7:02 PM) [id number]
[2020-07-09] MEDS: IPRATRPIUM/ALBUTEROL 0.5/2.5MG 3 ML NEBU. NEB SCH (20:11)
[2020-07-09 20:20] LABS: BILIRUBIN,URINE NEGATIVE (NEG); CLARITY,URINE CLEAR; COLOR,URINE YELLOW; NITRITE,URINE NEGATIVE (NEG); PROTEIN,URINE NEGATIVE (NEG-TRACE); UROBILINOGEN,URINE 0.2 mg/dL (0.2 mg/dL)
[2020-07-09 20:27] LABS: HYALINE CASTS, URINE MANY /HPF
[2020-07-09 20:28] LABS: AMPHETAMINE/METHAMPHETAMINE NEG (NEG); BARBITURATES NEG (NEG); BENZODIAZEPINES NEG (NEG); CANNABINOIDS NEG (NEG); COCAINE NEG (NEG); METHADONE NEG (NEG); OPIATES NEG (NEG); PHENCYCLIDINE NEG (NEG)
[2020-07-09 20:29] LABS: BACTERIA,URINE FEW /HPF (0-FEW); RBC,URINE 0 /HPF (0-2)
[2020-07-09 21:00] VITALS: BP 110/75
[2020-07-09] MEDS: IV NORMAL SALINE 1000ML BAG 1,000 ML IV SCH (23:21)
[2020-07-09 23:30] VITALS: BP 106/67
[2020-07-09] MEDS ORDERED: HYDR-2145 PO (23:38)
[2020-07-10 03:00] VITALS: BP 110/69
[2020-07-10 07:00] VITALS: BP 99/63
[2020-07-10] MEDS: IPRATRPIUM/ALBUTEROL 0.5/2.5MG 3 ML NEBU. NEB SCH ×4 (07:30→20:50)
[2020-07-10 08:21] LABS: BASO % 0 % (0-3); EOS % 0 % (0-3); HEMATOCRIT 34.2 % (36.0-47.0); HEMOGLOBIN 11.6 g/dL (12.0-15.5); LYMPH # 0.9 x10^3/uL (1.0-4.8); LYMPH % 25 % (24-48); MEAN CORPUSCULAR HEMOGLOBIN 28 pg (25-35); MEAN CORPUSCULAR HGB CONC 34 g/dL (31-37); MEAN CORPUSCULAR VOLUME 83 fL (79-100); MONO # 0.4 x10^3/uL (0.0-1.1); MONO % 12 % (0-9); NEUT # 2.3 x10^3/uL (1.8-7.7); NEUT % 62 % (31-73); PLATELET COUNT 189 x10^3/uL (140-400); RED BLOOD COUNT 4.13 x10^6/uL (3.50-5.40); WHITE BLOOD COUNT 3.7 x10^3/uL (4.0-11.0)
[2020-07-10 08:37] LABS: CALCIUM 7.8 mg/dL (8.5-10.1); CREATININE 1.8 mg/dL (0.6-1.0); GFR 34.3; MAGNESIUM 1.8 mg/dL (1.8-2.4); POTASSIUM 3.3 mmol/L (3.5-5.1)
[2020-07-10] MEDS: IV NORMAL SALINE 1000ML BAG 1,000 ML IV SCH ×2 (09:08→17:36)
[2020-07-10 11:00] VITALS: BP 101/70
--- NOTE | 2020-07-10 11:33 | PDOC2 ---
CARDIOLOGY CONSULT NOTE DATE OF SERVICE: DATE: 07/10/20 TIME: 11:31 CHIEF COMPLAINT: Fall, dizziness. Cardiology asked to evaluate for this HPI: 64 y.o woman presents for fall in the setting of poor p.o intake. Denies any chest pain, dyspnea, orthopnea or PND. No syncope. PMHX: COPD HTN CKD SOCHX: +Tobacco use FAMHX: NC CURRENT MEDS: Current Medications Medications (Trade) Dose Ordered Sig/Summer Route PRN Reason Start Time Stop Time Status Last Admin Dose Admin Potassium Chloride (Klor-Con) 40 meq 1X ONCE PO 07/09/20 16:15 07/09/20 16:20 DC 07/09/20 17:14 Potassium Chloride/Water 100 ml @ 50 mls/hr Q1HR IV 07/09/20 17:00 07/09/20 18:59 DC 07/09/20 18:00 Sodium Chloride 1,000 ml @ 1,000 mls/hr 1X ONCE IV 07/09/20 16:45 07/09/20 17:44 DC 07/09/20 17:02 Sodium Chloride 1,000 ml @ 100 mls/hr Q10H IV 07/09/20 17:33 07/10/20 09:08 Albuterol/ Ipratropium (Duoneb) 3 ml RTQID NEB 07/09/20 20:00 07/10/20 07:30 ALLERGIES: Allergies Coded Allergies Type Severity Reaction Last Updated Verified No Known Drug Allergies 10/25/16 No ROS: Negative unless noted above in HPI PHYSICAL EXAM: Vital Signs/I&O: Vital Signs Date Time Temp Pulse Resp B/P (MAP) Pulse Ox O2 Delivery O2 Flow Rate FiO2 07/10/20 07:45 Nasal Cannula 2.0 07/10/20 07:32 96 07/10/20 07:00 98.1 93 18 99/63 (75) 98.1 I & O 07/09/20 07/09/20 07/10/20 15:00 23:00 07:00 Intake Total 0 ml Balance 0 ml Physical Exam: GEN.: No apparent distress. Alert and oriented. HEENT: Head is normocephalic, atraumatic NECK: Supple. LUNGS: Clear to auscultation. HEART: RRR, S1, S2 present. Peripheral pulses intact ABDOMEN: Soft, nontender. Positive bowel sounds. EXTREMITIES: Without any cyanosis. NEUROLOGIC: Normal speech, normal tone PSYCHIATRIC: Normal affect, normal mood. SKIN: No ulcerations DIAGNOSTIC TESTING: labs, ekg, tele reviewed. Lab Laboratory Tests Test 07/09/20 15:17 07/09/20 15:52 07/09/20 20:09 07/10/20 07:56 White Blood Count 3.7 x10^3/uL (4.0-11.0) L 3.7 x10^3/uL (4.0-11.0) L Red Blood Count 4.44 x10^6/uL (3.50-5.40) 4.13 x10^6/uL (3.50-5.40) Hemoglobin 12.6 g/dL (12.0-15.5) 11.6 g/dL (12.0-15.5) L Hematocrit 36.3 % (36.0-47.0) 34.2 % (36.0-47.0) L Mean Corpuscular Volume 82 fL (79-100) 83 fL (79-100) Mean Corpuscular Hemoglobin 28 pg (25-35) 28 pg (25-35) Mean Corpuscular Hemoglobin Concent 35 g/dL (31-37) 34 g/dL (31-37) Red Cell Distribution Width 16.3 % (11.5-14.5) H 16.0 % (11.5-14.5) H Platelet Count 190 x10^3/uL (140-400) 189 x10^3/uL (140-400) Neutrophils (%) (Auto) 65 % (31-73) 62 % (31-73) Lymphocytes (%) (Auto) 21 % (24-48) L 25 % (24-48) Monocytes (%) (Auto) 13 % (0-9) H 12 % (0-9) H Eosinophils (%) (Auto) 0 % (0-3) 0 % (0-3) Basophils (%) (Auto) 1 % (0-3) 0 % (0-3) Neutrophils # (Auto) 2.4 x10^3/uL (1.8-7.7) 2.3 x10^3/uL (1.8-7.7) Lymphocytes # (Auto) 0.8 x10^3/uL (1.0-4.8) L 0.9 x10^3/uL (1.0-4.8) L Monocytes # (Auto) 0.5 x10^3/uL (0.0-1.1) 0.4 x10^3/uL (0.0-1.1) Eosinophils # (Auto) 0.0 x10^3/uL (0.0-0.7) 0.0 x10^3/uL (0.0-0.7) Basophils # (Auto) 0.0 x10^3/uL (0.0-0.2) 0.0 x10^3/uL (0.0-0.2) Sodium Level 134 mmol/L (136-145) L 137 mmol/L (136-145) Potassium Level 2.8 mmol/L (3.5-5.1) *L 3.3 mmol/L (3.5-5.1) L Chloride Level 93 mmol/L (98-107) L 100 mmol/L (98-107) Carbon Dioxide Level 34 mmol/L (21-32) H 30 mmol/L (21-32) Anion Gap 7 (6-14) 7 (6-14) Blood Urea Nitrogen 31 mg/dL (7-20) H 21 mg/dL (7-20) H Creatinine 2.5 mg/dL (0.6-1.0) H 1.8 mg/dL (0.6-1.0) H Estimated GFR (Cockcroft-Gault) 23.5 34.3 Glucose Level 101 mg/dL (70-99) H 94 mg/dL (70-99) Calcium Level 8.4 mg/dL (8.5-10.1) L 7.8 mg/dL (8.5-10.1) L Urine Collection Type Unknown Urine Color Yellow Urine Clarity Clear Urine pH 6.0 (<5.0-8.0) Urine Specific [place] 1.010 (1.000-1.030) Urine Protein Negative mg/dL (NEG-TRACE) Urine Glucose (UA) Negative mg/dL (NEG) Urine Ketones (Stick) Negative mg/dL (NEG) Urine Blood Negative (NEG) Urine Nitrite Negative (NEG) Urine Bilirubin Negative (NEG) Urine Urobilinogen Dipstick 0.2 mg/dL (0.2 mg/dL) Urine Leukocyte Esterase Negative (NEG) Urine RBC 0 /HPF (0-2) Urine WBC 1-4 /HPF (0-4) Urine Squamous Epithelial Cells Mod /LPF Urine Bacteria Few /HPF (0-FEW) Urine Hyaline Casts Many /HPF Urine Mucus Mod /LPF Urine Opiates Screen Neg (NEG) Urine Methadone Screen Neg (NEG) Urine Barbiturates Neg (NEG) Urine Phencyclidine Screen Neg (NEG) Urine Amphetamine/Methamphetamine Neg (NEG) Urine Benzodiazepines Screen Neg (NEG) Urine Cocaine Screen Neg (NEG) Urine Cannabinoids Screen Neg (NEG) Urine Ethyl Alcohol Neg (NEG) Phosphorus Level 3.0 mg/dL (2.6-4.7) Laboratory Tests 07/10/20 07:56 ASSESSMENT: 1. Dizziness - likely due to MONISHA 2. COPD 3. HTN PLAN: 1. No further CV testing needed at this time. Supportive care. Pls call with questions. She can f/u on an outpt basis if needed to rule out any arrhythmias. Thanks RACHEL DOMINGUEZ MD Jul 10, 2020 11:33
--- NOTE | 2020-07-10 11:44 | PDOC ---
[facility] [facility] [facility] NOTE Date of Service DOS: DATE: 07/10/20 TIME: 11:40 Chief Complaint Chief Complaint Dizziness Vertigo MONISHA Hyperlipidemia HTN COPD History of Present Illness History of Present Illness HPI: Patient is a 64-year-old female with past medical history of hypertension and COPD not on any home O2 who presents with a history of 1 week of dizziness. Patient says dizziness is worse when she tries to stand and walk around. This comes and goes and it also feels like the room is spinning but she also may pass out. Of note, patient also states that she did get up last night to try to get something to eat in the kitchen and she had a sudden drop attack. She elected lose consciousness and her sister woke her up. Patient did fall from standing onto a carpeted floor. Patient did not have any dizzy symptoms prior to her fall. But she continues to be dizzy whenever she moves her head or when she is standing. Denies fevers, shortness of breath, chest pain, abdominal pain, diarrhea or bloody stools. 07/10 Pt seen and Examined. She was sitting up on side of bed eating breakfast. STARLA RN . No Dizziness today. Denies Chest pain and SOA. Vitals/I&O Vitals/I&O: Vital Signs Date Time Temp Pulse Resp B/P (MAP) Pulse Ox O2 Delivery O2 Flow Rate FiO2 07/10/20 07:45 Nasal Cannula 2.0 07/10/20 07:32 96 07/10/20 07:00 98.1 93 18 99/63 (75) 98.1 I & O 07/09/20 07/09/20 07/10/20 15:00 23:00 07:00 Intake Total 0 ml Balance 0 ml Physical Exam General: Alert, Oriented X3 Heart: Regular rate Lungs: Crackles Abdomen: No tenderness Extremities: No clubbing Skin: No rashes Labs Labs: Laboratory Tests Test 07/09/20 15:17 07/09/20 15:52 07/09/20 20:09 07/10/20 07:56 White Blood Count 3.7 x10^3/uL (4.0-11.0) 3.7 x10^3/uL (4.0-11.0) Red Blood Count 4.44 x10^6/uL (3.50-5.40) 4.13 x10^6/uL (3.50-5.40) Hemoglobin 12.6 g/dL (12.0-15.5) 11.6 g/dL (12.0-15.5) Hematocrit 36.3 % (36.0-47.0) 34.2 % (36.0-47.0) Mean Corpuscular Volume 82 fL (79-100) 83 fL (79-100) Mean Corpuscular Hemoglobin 28 pg (25-35) 28 pg (25-35) Mean Corpuscular Hemoglobin Concent 35 g/dL (31-37) 34 g/dL (31-37) Red Cell Distribution Width 16.3 % (11.5-14.5) 16.0 % (11.5-14.5) Platelet Count 190 x10^3/uL (140-400) 189 x10^3/uL (140-400) Neutrophils (%) (Auto) 65 % (31-73) 62 % (31-73) Lymphocytes (%) (Auto) 21 % (24-48) 25 % (24-48) Monocytes (%) (Auto) 13 % (0-9) 12 % (0-9) Eosinophils (%) (Auto) 0 % (0-3) 0 % (0-3) Basophils (%) (Auto) 1 % (0-3) 0 % (0-3) Neutrophils # (Auto) 2.4 x10^3/uL (1.8-7.7) 2.3 x10^3/uL (1.8-7.7) Lymphocytes # (Auto) 0.8 x10^3/uL (1.0-4.8) 0.9 x10^3/uL (1.0-4.8) Monocytes # (Auto) 0.5 x10^3/uL (0.0-1.1) 0.4 x10^3/uL (0.0-1.1) Eosinophils # (Auto) 0.0 x10^3/uL (0.0-0.7) 0.0 x10^3/uL (0.0-0.7) Basophils # (Auto) 0.0 x10^3/uL (0.0-0.2) 0.0 x10^3/uL (0.0-0.2) Sodium Level 134 mmol/L (136-145) 137 mmol/L (136-145) Potassium Level 2.8 mmol/L (3.5-5.1) 3.3 mmol/L (3.5-5.1) Chloride Level 93 mmol/L (98-107) 100 mmol/L (98-107) Carbon Dioxide Level 34 mmol/L (21-32) 30 mmol/L (21-32) Anion Gap 7 (6-14) 7 (6-14) Blood Urea Nitrogen 31 mg/dL (7-20) 21 mg/dL (7-20) Creatinine 2.5 mg/dL (0.6-1.0) 1.8 mg/dL (0.6-1.0) Estimated GFR (Cockcroft-Gault) 23.5 34.3 Glucose Level 101 mg/dL (70-99) 94 mg/dL (70-99) Calcium Level 8.4 mg/dL (8.5-10.1) 7.8 mg/dL (8.5-10.1) Troponin I Quantitative < 0.017 ng/mL (0.000-0.055) Urine Collection Type Unknown Urine Color Yellow Urine Clarity Clear Urine pH 6.0 (<5.0-8.0) Urine Specific [place] 1.010 (1.000-1.030) Urine Protein Negative mg/dL (NEG-TRACE) Urine Glucose (UA) Negative mg/dL (NEG) Urine Ketones (Stick) Negative mg/dL (NEG) Urine Blood Negative (NEG) Urine Nitrite Negative (NEG) Urine Bilirubin Negative (NEG) Urine Urobilinogen Dipstick 0.2 mg/dL (0.2 mg/dL) Urine Leukocyte Esterase Negative (NEG) Urine RBC 0 /HPF (0-2) Urine WBC 1-4 /HPF (0-4) Urine Squamous Epithelial Cells Mod /LPF Urine Bacteria Few /HPF (0-FEW) Urine Hyaline Casts Many /HPF Urine Mucus Mod /LPF Urine Opiates Screen Neg (NEG) Urine Methadone Screen Neg (NEG) Urine Barbiturates Neg (NEG) Urine Phencyclidine Screen Neg (NEG) Urine Amphetamine/Methamphetamine Neg (NEG) Urine Benzodiazepines Screen Neg (NEG) Urine Cocaine Screen Neg (NEG) Urine Cannabinoids Screen Neg (NEG) Urine Ethyl Alcohol Neg (NEG) Phosphorus Level 3.0 mg/dL (2.6-4.7) Magnesium Level 1.8 mg/dL (1.8-2.4) Review of Systems Review of Systems: No headaches. No abdominal pain. Assessment and Plan Assessmemt and Plan Problems Medical Problems: (1) Acute kidney injury Status: Acute (2) Dizziness Status: Acute (3) Hypokalemia Status: Acut Dizziness Hypokalemia Vertigo MONISHA Hypertension Hyperlipidemia COPD Plan: Cardiac Monitoring Encourage PO intake Consult With Cardiology Replace Potassium PT/OT DVT prophylaxis Fall precautions Cardiac Diet Full Code Appreciate subspecialist input Home Meds Possibly home tomorrow if she is feeling better and potassium normalized? Comment Review of Relevant I have reviewed the following items donnie (where applicable) has been applied. Medications: Current Medications Medications (Trade) Dose Ordered Sig/Summer Route PRN Reason Start Time Stop Time Status Last Admin Dose Admin Potassium Chloride (Klor-Con) 40 meq 1X ONCE PO 07/09/20 16:15 07/09/20 16:20 DC 07/09/20 17:14 Potassium Chloride/Water 100 ml @ 50 mls/hr Q1HR IV 07/09/20 17:00 07/09/20 18:59 DC 07/09/20 18:00 Sodium Chloride 1,000 ml @ 1,000 mls/hr 1X ONCE IV 07/09/20 16:45 07/09/20 17:44 DC 07/09/20 17:02 Sodium Chloride 1,000 ml @ 100 mls/hr Q10H IV 07/09/20 17:33 07/10/20 09:08 Albuterol/ Ipratropium (Duoneb) 3 ml RTQID [facility] 07/09/20 20:00 07/10/20 07:30 Justifications for Admission Syncope Indications Is patient dehydrated?: Yes Justification for admission: There is concern that patient may be severely dehydrated accounting for the syncope. Patient needs inpatient level of care for further evaluation and management. Other Justification PATY BOWEN III DO Jul 10, 2020 11:44
[2020-07-10] MEDS ORDERED: POTASSIUM CHLORIDE 20 MEQ TABLET.ER. PO ONE (11:45)
--- NOTE | 2020-07-10 14:20 | CARD ---
MR#: [id number] Date of Study: 07/10/2020 Ordering Physician: BERNABE NEELY, Referring Physician: BERNABE NEELY, Tech: Michell Pastrana APPROVED REPORT EXAM: Two-dimensional and M-mode echocardiogram with Doppler and color Doppler. Other Information Quality : AverageHR: 89bpm Technically limited study due to body habitus. INDICATION COPD Syncope RISK FACTORS Hypertension 2D DIMENSIONS RVDd2.3 (2.9-3.5cm)Left Atrium(2D)3.1 (1.6-4.0cm) IVSd1.2 (0.7-1.1cm)Aortic Root(2D)2.7 (2.0-3.7cm) LVDd4.3 (3.9-5.9cm)LVOT Diameter1.9 (1.8-2.4cm) PWd1.1 (0.7-1.1cm)LVDs3.1 (2.5-4.0cm) FS (%) 28.5 %SV46.9 ml LVEF(%)55.3 (>50%) Aortic Valve AoV Peak Pedrito.100.5cm/sAoV VTI22.8cm AO Peak GR.4.0mmHgLVOT VTI 12.75cm AO Mean GR.4mmHg Mitral Valve MV E Ijexsgqu24.0cm/sMV E Peak Gr.3mmHg MV DECEL [id number] A Evtxetfz36.7cm/s MV E Mean Gr.2mmHgE/A Ratio1.1 TDI Lateral E' P. V6.69cm/sMedial E' P. V6.82cm/s E/Lateral E'14.2E/Medial E'13.9 Tricuspid Valve TR P. Wgwoqzup324ls/sRAP [id number] TR Peak Gr.[id number] LEFT VENTRICLE The left ventricle is normal size. There is mild concentric left ventricular hypertrophy. The left ve ntricular systolic function is normal and the ejection fraction is within normal range. The Ejection Fraction is 55%. Septal motion consistent with conduction abnormality. Otherwise, grossly normal wall motion. Transmitral Doppler flow pattern is Grade I-abnormal relaxation pattern. RIGHT VENTRICLE The right ventricle is normal size. There is normal right ventricular wall thickness. The right ventr icular systolic function is normal. ATRIA The left atrium size is normal. The right atrium size is normal. The interatrial septum is intact wit h no evidence for an atrial septal defect or patent foramen ovale as noted on 2-D or Doppler imaging. AORTIC VALVE The aortic valve is not well visualized. Doppler and Color Flow revealed trace aortic regurgitation. There is no significant aortic valvular stenosis. Calculated aortic valve area is 1.66 cm2 with maxim um pressure gradient of 6 mmHg and mean pressure gradient of 4 mmHg. MITRAL VALVE The mitral valve is normal in structure and function. There is no evidence of mitral valve prolapse. There is no mitral valve stenosis. Doppler and Color-flow revealed trace mitral regurgitation. TRICUSPID VALVE The tricuspid valve is not well visualized. Doppler and Color Flow revealed trace tricuspid regurgita tion with an estimated PAP of 32 mmHg. There is no tricuspid valve stenosis. PULMONIC VALVE The pulmonic valve is not well visualized. Doppler and Color Flow revealed trace pulmonic valvular re gurgitation. There is no pulmonic valvular stenosis. GREAT VESSELS The aortic root is normal in size. The IVC is dilated. PERICARDIAL EFFUSION There is no evidence of significant pericardial effusion. Critical Notification Critical Value: No <Conclusion> The left ventricular systolic function is normal and the ejection fraction is within normal range. Th e Ejection Fraction is 55%. Septal motion consistent with conduction abnormality. Otherwise, grossly normal wall motion. Signed by : Bernabe Neely, Electronically Approved : 07/10/2020 14:19:38
[2020-07-10 15:00] VITALS: BP 119/60
[2020-07-10 19:47] VITALS: BP 123/76
[2020-07-11 00:04] VITALS: BP 107/75
[2020-07-11] MEDS: IV NORMAL SALINE 1000ML BAG 1,000 ML IV SCH (01:15)
[2020-07-11 04:08] VITALS: BP 110/67
[2020-07-11 06:39] LABS: BASO % 0 % (0-3); EOS % 1 % (0-3); HEMOGLOBIN 11.5 g/dL (12.0-15.5); LYMPH # 0.9 x10^3/uL (1.0-4.8); LYMPH % 23 % (24-48); MEAN CORPUSCULAR HEMOGLOBIN 28 pg (25-35); MEAN CORPUSCULAR HGB CONC 34 g/dL (31-37); MEAN CORPUSCULAR VOLUME 84 fL (79-100); MONO # 0.5 x10^3/uL (0.0-1.1); MONO % 13 % (0-9); NEUT # 2.5 x10^3/uL (1.8-7.7); NEUT % 63 % (31-73); PLATELET COUNT 210 x10^3/uL (140-400); RED BLOOD COUNT 4.06 x10^6/uL (3.50-5.40); RED CELL DISTRIBUTION WIDTH 16.3 % (11.5-14.5); WHITE BLOOD COUNT 3.9 x10^3/uL (4.0-11.0)
[2020-07-11 06:42] LABS: CALCIUM 7.8 mg/dL (8.5-10.1); CREATININE 1.4 mg/dL (0.6-1.0); GFR 45.8; POTASSIUM 3.3 mmol/L (3.5-5.1)
[2020-07-11] MEDS: IPRATRPIUM/ALBUTEROL 0.5/2.5MG 3 ML NEBU. NEB SCH ×2 (07:30→11:30)
[2020-07-11 08:00] VITALS: BP 117/77
[2020-07-11] MEDS ORDERED: POTASSIUM CHLORIDE 20 MEQ TABLET.ER. PO PRN (08:30)
--- NOTE | 2020-07-11 10:17 | PDOC ---
CARDIOLOGY PROGRESS NOTE SUBJECTIVE: No new events overnight. Denies any dizziness. No chest pain. OBJECTIVE: Vital Signs/I&O: Vital Signs Date Time Temp Pulse Resp B/P (MAP) Pulse Ox O2 Delivery O2 Flow Rate FiO2 07/11/20 08:00 99.3 97 18 117/77 (90) 97 99.3 07/11/20 07:31 Nasal Cannula 2.0 I & O 07/10/20 07/10/20 07/11/20 15:00 23:00 07:00 Intake Total 180 ml 520 ml 1000 ml Balance 180 ml 520 ml 1000 ml Objective: GEN.: No apparent distress. Alert and oriented. HEENT: Head is normocephalic, atraumatic NECK: Supple. LUNGS: mild wheezing HEART: RRR, S1, S2 present. Peripheral pulses intact ABDOMEN: Soft, nontender. Positive bowel sounds. EXTREMITIES: Without any cyanosis. NEUROLOGIC: Normal speech, normal tone PSYCHIATRIC: Normal affect, normal mood. SKIN: No ulcerations CURRENT MEDICATIONS: Current Medications Medications (Trade) Dose Ordered Sig/Summer Route PRN Reason Start Time Stop Time Status Last Admin Dose Admin Potassium Chloride (Klor-Con) 40 meq 1X ONCE PO 07/10/20 11:45 07/10/20 12:03 DC 07/10/20 12:14 Potassium Chloride (Klor-Con) 40 meq 1X PRN PO PER PROTOCOL 07/11/20 08:30 07/11/20 09:35 DIAGNOSTIC TESTING: Echo wnl Labs: Laboratory Tests 07/11/20 05:45 Laboratory Tests Test 07/11/20 05:45 White Blood Count 3.9 x10^3/uL (4.0-11.0) L Red Blood Count 4.06 x10^6/uL (3.50-5.40) Hemoglobin 11.5 g/dL (12.0-15.5) L Hematocrit 34.0 % (36.0-47.0) L Mean Corpuscular Volume 84 fL (79-100) Mean Corpuscular Hemoglobin 28 pg (25-35) Mean Corpuscular Hemoglobin Concent 34 g/dL (31-37) Red Cell Distribution Width 16.3 % (11.5-14.5) H Platelet Count 210 x10^3/uL (140-400) Neutrophils (%) (Auto) 63 % (31-73) Lymphocytes (%) (Auto) 23 % (24-48) L Monocytes (%) (Auto) 13 % (0-9) H Eosinophils (%) (Auto) 1 % (0-3) Basophils (%) (Auto) 0 % (0-3) Neutrophils # (Auto) 2.5 x10^3/uL (1.8-7.7) Lymphocytes # (Auto) 0.9 x10^3/uL (1.0-4.8) L Monocytes # (Auto) 0.5 x10^3/uL (0.0-1.1) Eosinophils # (Auto) 0.0 x10^3/uL (0.0-0.7) Basophils # (Auto) 0.0 x10^3/uL (0.0-0.2) Sodium Level 138 mmol/L (136-145) Potassium Level 3.3 mmol/L (3.5-5.1) L Chloride Level 101 mmol/L (98-107) Carbon Dioxide Level 29 mmol/L (21-32) Anion Gap 8 (6-14) Blood Urea Nitrogen 11 mg/dL (7-20) Creatinine 1.4 mg/dL (0.6-1.0) H Estimated GFR (Cockcroft-Gault) 45.8 Glucose Level 90 mg/dL (70-99) Calcium Level 7.8 mg/dL (8.5-10.1) L ASSESSMENT: 1. Dizzines - non-cardiac. 2. COPD 3. CKD PLAN: 1. Echo WNL. Tele unremarkable. no clear CV symptoms. Supportive care. She will f/u on an outpt basis. Justicifation of Admission Dx: Justifications for Admission: Justification of Admission Dx: N/A RACHEL DOMINGUEZ MD Jul 11, 2020 10:17
[2020-07-11 12:00] VITALS: BP 108/72
--- NOTE | 2020-07-11 12:03 | PDOC ---
[employer] PROGRESS NOTE Date of Service DOS: DATE: 07/11/20 TIME: 11:56 Chief Complaint Chief Complaint Dizziness Vertigo MONISHA Hyperlipidemia HTN COPD History of Present Illness History of Present Illness HPI: Patient is a 64-year-old female with past medical history of hypertension and COPD not on any home O2 who presents with a history of 1 week of dizziness. Patient says dizziness is worse when she tries to stand and walk around. This comes and goes and it also feels like the room is spinning but she also may pass out. Of note, patient also states that she did get up last night to try to get something to eat in the kitchen and she had a sudden drop attack. She elected lose consciousness and her sister woke her up. Patient did fall from standing onto a carpeted floor. Patient did not have any dizzy symptoms prior to her fall. But she continues to be dizzy whenever she moves her head or when she is standing. Denies fevers, shortness of breath, chest pain, abdominal pain, diarrhea or bloody stools. 07/10 Pt seen and Examined. She was sitting up on side of bed eating breakfast. STARLA RN . No Dizziness today. Denies Chest pain and SOA. 07/11 Patient evaluated bedside. She feels well, denies any shortness of breath on 2 L nasal cannula. Patient has a longstanding history of tobacco use and COPD. Echocardiogram showed normal left ventricular wall motion and normal ejection fraction. We will try to wean oxygen and evaluate with 6-minute walk. If no O2 requirement may discharge home today. If she does have O2 requirement will need to set patient up with home oxygen. Vitals/I&O Vitals/I&O: Vital Signs Date Time Temp Pulse Resp B/P (MAP) Pulse Ox O2 Delivery O2 Flow Rate FiO2 07/11/20 11:32 97 Nasal Cannula 2.0 07/11/20 08:00 99.3 97 18 117/77 (90) 99.3 I & O 07/10/20 07/10/20 07/11/20 15:00 23:00 07:00 Intake Total 180 ml 520 ml 1000 ml Balance 180 ml 520 ml 1000 ml Physical Exam General: Alert, Oriented X3 Heart: Regular rate Lungs: Crackles Abdomen: No tenderness Extremities: No clubbing Skin: No rashes Labs Labs: Laboratory Tests Test 07/11/20 05:45 White Blood Count 3.9 x10^3/uL (4.0-11.0) Red Blood Count 4.06 x10^6/uL (3.50-5.40) Hemoglobin 11.5 g/dL (12.0-15.5) Hematocrit 34.0 % (36.0-47.0) Mean Corpuscular Volume 84 fL (79-100) Mean Corpuscular Hemoglobin 28 pg (25-35) Mean Corpuscular Hemoglobin Concent 34 g/dL (31-37) Red Cell Distribution Width 16.3 % (11.5-14.5) Platelet Count 210 x10^3/uL (140-400) Neutrophils (%) (Auto) 63 % (31-73) Lymphocytes (%) (Auto) 23 % (24-48) Monocytes (%) (Auto) 13 % (0-9) Eosinophils (%) (Auto) 1 % (0-3) Basophils (%) (Auto) 0 % (0-3) Neutrophils # (Auto) 2.5 x10^3/uL (1.8-7.7) Lymphocytes # (Auto) 0.9 x10^3/uL (1.0-4.8) Monocytes # (Auto) 0.5 x10^3/uL (0.0-1.1) Eosinophils # (Auto) 0.0 x10^3/uL (0.0-0.7) Basophils # (Auto) 0.0 x10^3/uL (0.0-0.2) Sodium Level 138 mmol/L (136-145) Potassium Level 3.3 mmol/L (3.5-5.1) Chloride Level 101 mmol/L (98-107) Carbon Dioxide Level 29 mmol/L (21-32) Anion Gap 8 (6-14) Blood Urea Nitrogen 11 mg/dL (7-20) Creatinine 1.4 mg/dL (0.6-1.0) Estimated GFR (Cockcroft-Gault) 45.8 Glucose Level 90 mg/dL (70-99) Calcium Level 7.8 mg/dL (8.5-10.1) Review of Systems Review of Systems: Denies fever, denies shortness of breath, denies chest pain. Assessment and Plan Assessmemt and Plan Problems Medical Problems: (1) Acute kidney injury Status: Acute (2) Dizziness Status: Acute (3) Hypokalemia Status: Acute Comment Review of Relevant I have reviewed the following items donnie (where applicable) has been applied. Medications: Current Medications Medications (Trade) Dose Ordered Sig/Summer Route PRN Reason Start Time Stop Time Status Last Admin Dose Admin Potassium Chloride (Klor-Con) 40 meq 1X PRN PO PER PROTOCOL 07/11/20 08:30 07/11/20 09:35 Justifications for Admission Syncope Indications Is patient dehydrated?: Yes Justification for admission: There is concern that patient may be severely dehydrated accounting for the syncope. Patient needs inpatient level of care for further evaluation and management. Other Justification ASTRID PARAR MD Jul 11, 2020 12:03
--- NOTE | 2020-07-11 12:08 | PDOC3 ---
Discharge Summary Visit Information Date of Admission: Jul 09, 2020 Date of Discharge: Jul 11, 2020 Final Diagnosis Problems Medical Problems: (1) Acute kidney injury Status: Acute (2) Dizziness Status: Acute (3) Hypokalemia Status: Acute Brief Hospital Course Allergies Allergies Coded Allergies Type Severity Reaction Last Updated Verified lisinopril Allergy Severe 07/11/20 Yes Vital Signs Vital Signs Date Time Temp Pulse Resp B/P (MAP) Pulse Ox O2 Delivery O2 Flow Rate FiO2 07/11/20 11:32 97 Nasal Cannula 2.0 07/11/20 08:00 99.3 97 18 117/77 (90) 99.3 Lab Results Laboratory Tests Test 07/09/20 15:17 07/09/20 15:52 07/09/20 20:09 07/10/20 07:56 White Blood Count 3.7 x10^3/uL (4.0-11.0) 3.7 x10^3/uL (4.0-11.0) Red Blood Count 4.44 x10^6/uL (3.50-5.40) 4.13 x10^6/uL (3.50-5.40) Hemoglobin 12.6 g/dL (12.0-15.5) 11.6 g/dL (12.0-15.5) Hematocrit 36.3 % (36.0-47.0) 34.2 % (36.0-47.0) Mean Corpuscular Volume 82 fL (79-100) 83 fL (79-100) Mean Corpuscular Hemoglobin 28 pg (25-35) 28 pg (25-35) Mean Corpuscular Hemoglobin Concent 35 g/dL (31-37) 34 g/dL (31-37) Red Cell Distribution Width 16.3 % (11.5-14.5) 16.0 % (11.5-14.5) Platelet Count 190 x10^3/uL (140-400) 189 x10^3/uL (140-400) Neutrophils (%) (Auto) 65 % (31-73) 62 % (31-73) Lymphocytes (%) (Auto) 21 % (24-48) 25 % (24-48) Monocytes (%) (Auto) 13 % (0-9) 12 % (0-9) Eosinophils (%) (Auto) 0 % (0-3) 0 % (0-3) Basophils (%) (Auto) 1 % (0-3) 0 % (0-3) Neutrophils # (Auto) 2.4 x10^3/uL (1.8-7.7) 2.3 x10^3/uL (1.8-7.7) Lymphocytes # (Auto) 0.8 x10^3/uL (1.0-4.8) 0.9 x10^3/uL (1.0-4.8) Monocytes # (Auto) 0.5 x10^3/uL (0.0-1.1) 0.4 x10^3/uL (0.0-1.1) Eosinophils # (Auto) 0.0 x10^3/uL (0.0-0.7) 0.0 x10^3/uL (0.0-0.7) Basophils # (Auto) 0.0 x10^3/uL (0.0-0.2) 0.0 x10^3/uL (0.0-0.2) Sodium Level 134 mmol/L (136-145) 137 mmol/L (136-145) Potassium Level 2.8 mmol/L (3.5-5.1) 3.3 mmol/L (3.5-5.1) Chloride Level 93 mmol/L (98-107) 100 mmol/L (98-107) Carbon Dioxide Level 34 mmol/L (21-32) 30 mmol/L (21-32) Anion Gap 7 (6-14) 7 (6-14) Blood Urea Nitrogen 31 mg/dL (7-20) 21 mg/dL (7-20) Creatinine 2.5 mg/dL (0.6-1.0) 1.8 mg/dL (0.6-1.0) Estimated GFR (Cockcroft-Gault) 23.5 34.3 Glucose Level 101 mg/dL (70-99) 94 mg/dL (70-99) Calcium Level 8.4 mg/dL (8.5-10.1) 7.8 mg/dL (8.5-10.1) Troponin I Quantitative < 0.017 ng/mL (0.000-0.055) Urine Collection Type Unknown Urine Color Yellow Urine Clarity Clear Urine pH 6.0 (<5.0-8.0) Urine Specific [place] 1.010 (1.000-1.030) Urine Protein Negative mg/dL (NEG-TRACE) Urine Glucose (UA) Negative mg/dL (NEG) Urine Ketones (Stick) Negative mg/dL (NEG) Urine Blood Negative (NEG) Urine Nitrite Negative (NEG) Urine Bilirubin Negative (NEG) Urine Urobilinogen Dipstick 0.2 mg/dL (0.2 mg/dL) Urine Leukocyte Esterase Negative (NEG) Urine RBC 0 /HPF (0-2) Urine WBC 1-4 /HPF (0-4) Urine Squamous Epithelial Cells Mod /LPF Urine Bacteria Few /HPF (0-FEW) Urine Hyaline Casts Many /HPF Urine Mucus Mod /LPF Urine Opiates Screen Neg (NEG) Urine Methadone Screen Neg (NEG) Urine Barbiturates Neg (NEG) Urine Phencyclidine Screen Neg (NEG) Urine Amphetamine/Methamphetamine Neg (NEG) Urine Benzodiazepines Screen Neg (NEG) Urine Cocaine Screen Neg (NEG) Urine Cannabinoids Screen Neg (NEG) Urine Ethyl Alcohol Neg (NEG) Phosphorus Level 3.0 mg/dL (2.6-4.7) Magnesium Level 1.8 mg/dL (1.8-2.4) Test 07/11/20 05:45 White Blood Count 3.9 x10^3/uL (4.0-11.0) Red Blood Count 4.06 x10^6/uL (3.50-5.40) Hemoglobin 11.5 g/dL (12.0-15.5) Hematocrit 34.0 % (36.0-47.0) Mean Corpuscular Volume 84 fL (79-100) Mean Corpuscular Hemoglobin 28 pg (25-35) Mean Corpuscular Hemoglobin Concent 34 g/dL (31-37) Red Cell Distribution Width 16.3 % (11.5-14.5) Platelet Count 210 x10^3/uL (140-400) Neutrophils (%) (Auto) 63 % (31-73) Lymphocytes (%) (Auto) 23 % (24-48) Monocytes (%) (Auto) 13 % (0-9) Eosinophils (%) (Auto) 1 % (0-3) Basophils (%) (Auto) 0 % (0-3) Neutrophils # (Auto) 2.5 x10^3/uL (1.8-7.7) Lymphocytes # (Auto) 0.9 x10^3/uL (1.0-4.8) Monocytes # (Auto) 0.5 x10^3/uL (0.0-1.1) Eosinophils # (Auto) 0.0 x10^3/uL (0.0-0.7) Basophils # (Auto) 0.0 x10^3/uL (0.0-0.2) Sodium Level 138 mmol/L (136-145) Potassium Level 3.3 mmol/L (3.5-5.1) Chloride Level 101 mmol/L (98-107) Carbon Dioxide Level 29 mmol/L (21-32) Anion Gap 8 (6-14) Blood Urea Nitrogen 11 mg/dL (7-20) Creatinine 1.4 mg/dL (0.6-1.0) Estimated GFR (Cockcroft-Gault) 45.8 Glucose Level 90 mg/dL (70-99) Calcium Level 7.8 mg/dL (8.5-10.1) Laboratory Tests Test 07/11/20 05:45 White Blood Count 3.9 x10^3/uL (4.0-11.0) Red Blood Count 4.06 x10^6/uL (3.50-5.40) Hemoglobin 11.5 g/dL (12.0-15.5) Hematocrit 34.0 % (36.0-47.0) Mean Corpuscular Volume 84 fL (79-100) Mean Corpuscular Hemoglobin 28 pg (25-35) Mean Corpuscular Hemoglobin Concent 34 g/dL (31-37) Red Cell Distribution Width 16.3 % (11.5-14.5) Platelet Count 210 x10^3/uL (140-400) Neutrophils (%) (Auto) 63 % (31-73) Lymphocytes (%) (Auto) 23 % (24-48) Monocytes (%) (Auto) 13 % (0-9) Eosinophils (%) (Auto) 1 % (0-3) Basophils (%) (Auto) 0 % (0-3) Neutrophils # (Auto) 2.5 x10^3/uL (1.8-7.7) Lymphocytes # (Auto) 0.9 x10^3/uL (1.0-4.8) Monocytes # (Auto) 0.5 x10^3/uL (0.0-1.1) Eosinophils # (Auto) 0.0 x10^3/uL (0.0-0.7) Basophils # (Auto) 0.0 x10^3/uL (0.0-0.2) Sodium Level 138 mmol/L (136-145) Potassium Level 3.3 mmol/L (3.5-5.1) Chloride Level 101 mmol/L (98-107) Carbon Dioxide Level 29 mmol/L (21-32) Anion Gap 8 (6-14) Blood Urea Nitrogen 11 mg/dL (7-20) Creatinine 1.4 mg/dL (0.6-1.0) Estimated GFR (Cockcroft-Gault) 45.8 Glucose Level 90 mg/dL (70-99) Calcium Level 7.8 mg/dL (8.5-10.1) Brief Hospital Course Ms. Correia is a 64 old female who presented with hypokalemia, acute kidney injury. She was treated with potassium replacement and IV fluids, with improvement in her kidney function. Patient was recommended to discontinue hydrochlorothiazide as her blood pressure was well within goal and this may be a contributing to her acute kidney injury. Discharge Information Condition at Discharge: Improved Follow Up: Weeks Disposition/Orders: D/C to Home Scheduled Albuterol Sulfate (Ventolin Hfa Inhaler) 18 Gm Hfa.aer.ad, 2 PUFF INH Q4HRS for FOR ASTHMA, #1 Ref 0 Prescribed by: Morelia Hernandez APRN on 02/19/191633 Last Action: Reviewed on 07/09/202337 by RADHA LI Amlodipine Besylate (Norvasc) 10 Mg Tablet, 10 MG PO DAILY for Hyptension , (Reported) Entered as Reported by: JOE COUCH RN on 01/25/19223 Last Action: Reviewed on 07/09/202337 by RADHA LI Fluticasone/Salmeterol (Advair 250-50 Diskus) 1 Each Disk.w.dev, 1 PUFF IH BID for asthma, #1 Ref 5 (Reported) Entered as Reported by: JOE COUCH RN on 01/25/19223 Last Action: Reviewed on 07/09/202337 by RADHA LI Tiotropium [place] (Spiriva) 18 Mcg Cap.w.dev, 1 CAP IH DAILY, #30 Ref 0 Prescribed by: AZUCENA PHIPSP D.O. on 10/25/16 1241 Last Action: Reviewed on 07/09/202337 by RAHDA LI Scheduled PRN Albuterol Sulfate (Proair Hfa Inhaler) 8.5 Gm Hfa.aer.ad, 1 PUFF INH PRN Q6HRS PRN for SHORTNESS OF BREATH, Ref 0 (Reported) Entered as Reported by: JOE COUCH RN on 01/25/19223 Last Action: Reviewed on 07/09/202337 by RADHA LI Discontinued Medications Hydrochlorothiazide (Hydrochlorothiazide Tablet ) 25 Mg Tablet, 25 MG PO DAILY for DIURETIC, Ref 0 (Reported) Entered as Reported by: RADHA LI on 07/09/202337 Last Taken: Unknown Dose on 07/09/20 0800 Last Action: New Order on 07/09 by RADHA LI Lisinopril (Lisinopril) 40 Mg Tablet, 1 TAB PO DAILY for Hypternsion , #30 Ref 5 (Reported) Entered as Reported by: JOE COUCH RN on 01/25/19223 Last Action: Discontinued on 07/11/20929 by RAMON RAMIRES RN Justicifation of Admission Dx: Justifications for Admission: Justification of Admission Dx: N/A ASTRID PARRA MD Jul 11, 2020 12:08
--- NOTE | 2020-07-11 13:22 | NUR ---
SS following for discharge planning. SS reviewed pt chart and discussed with pt RN. Pt is from home and is currently requiring oxygen. Six minute walk ordered. PT/OT recommended home independent. Discharge order on the chart for home with self care.
--- NOTE | 2020-07-11 15:32 | NUR ---
SS following up with discharge planning. Script for oxygen received. SS phoned and faxed script for oxygen to [facility], ; [phone]. Oxygen tank provided for discharge to home.
--- NOTE | 2020-07-11 16:12 | NUR ---
Discharge Note: WILMER SUAREZ Discharge instructions and discharge home medications reviewed with Patient and a copy given. All questions have been answered and understanding verbalized. Importance of follow up with cardiology, renal and primary emphasized. The following instructions and handouts were given: dizziness, Shortness of breath and cardiac diet. Discontinued iv line and catheter intact. Patient discharged to home with self-care and oxygen.
== END 2020-07-11 16:37 | disposition home or self-care (01) | DRG 640 ==
LOC: ER 14:34 → ED HOLD 19:13 → 2 NORTH 21:02
PROVIDERS: ADMIT Internal Medicine; ATTEND Internal Medicine
DX: E87.6 Hypokalemia (principal); N17.0 Acute kidney failure with tubular necrosis; E87.1 Hypo-osmolality and hyponatremia; E78.5 Hyperlipidemia, unspecified; E83.51 Hypocalcemia; E87.8 Other disorders of electrolyte and fluid balance, not elsewhere classified; D72.810 Lymphocytopenia; E86.9 Volume depletion, unspecified; F12.90 Cannabis use, unspecified, uncomplicated; I12.9 Hypertensive chronic kidney disease with stage 1 through stage 4 chronic kidney disease, or unspecified chronic kidney disease; J44.9 Chronic obstructive pulmonary disease, unspecified; N18.9 Chronic kidney disease, unspecified; Z87.891 Personal history of nicotine dependence; Z90.710 Acquired absence of both cervix and uterus
CPT/HCPCS: 36415; 70450; 71045; 80048; 80307; 81001; 83735; 84100; 84484; 85025; 93005; 93306; 94618; 94640; 94760; 96360; 96361; J3480; J7030; 97530-GP; 97535-GO; 99285-25; G0378

== ENCOUNTER 2021-10-23 23:54 | Inpatient (IN) | payer OTHER ==
[~2021-10-23] VITALS: Ht 162.6 cm; Wt 64.7 kg
[~2021-10-23 23:54] MED LIST changes: +HYDR-2145 PO; -MORPHINE SULFATE 4 MG/ML VIAL. IV PRN
[2021-10-24] MEDS ORDERED: IPRATRPIUM/ALBUTEROL 0.5/2.5MG 3 ML NEBU. NEB ONE (00:15)
[2021-10-24] MEDS ORDERED: IV NORMAL SALINE 500ML BAG 500 ML IV ONE (00:15)
[2021-10-24] MEDS ORDERED: DEXAMETHASONE SOD PHOS 20 MG/5 ML VIAL. IV ONE (00:15)
--- NOTE | 2021-10-24 00:17 | PHYS DOC ---
Past Medical History Past Medical History: COPD, Hypertension Past Surgical History: Hysterectomy Smoking Status: Former Smoker Alcohol Use: None Drug Use: Marijuana General Adult EDM: Chief Complaint: DYSPNEA/RESPIRATORY DISTRESS HPI: HPI: 66-year-old female past medical history of hypertension, hyperlipidemia, COPD and asthma, on 2 L home oxygen, presents to the ED brought in by EMS with complaints of shortness of breath, productive cough, fatigue, sore throat and decreased appetite for the past 2 days. Patient reports she was at a [employer] last night celebrating the loss of her sister from terminal cancer-drank alcohol then but not today. Is vaccinated for COVID and boosted. No prior history of COVID- 19 infection. Influenza vaccine is up-to-date. Reports no relief with her inhaler prior to ED arrival. No history of intubations. Denies any current drug use including cocaine or methamphetamines. Review of Systems: Review of Systems: Constitutional: Denies fever or chills. [] Eyes: Denies change in visual acuity. [] HENT: Denies nasal congestion or rhinorrhea Respiratory: Denies hemoptysis or nasal flaring Cardiovascular: Denies chest pain or edema. [] GI: Denies abdominal pain, nausea, vomiting, bloody stools or diarrhea. [] : Denies dysuria or hematuria Musculoskeletal: Denies back pain or joint pain. [] Integument: Denies rash or diaphoresis Neurologic: Denies headache, focal weakness or sensory changes. [] Endocrine: Denies polyuria or polydipsia. [] Lymphatic: Denies swollen glands. [] Psychiatric: Denies depression or anxiety. [] Heart Score: C/O Chest Pain: No Risk Factors: Risk Factors: DM, Current or recent (<one month) smoker, HTN, HLP, family history of CAD, obesity. Risk Scores: Score 0 - 3: 2.5% MACE over next 6 weeks - Discharge Home Score 4 - 6: 20.3% MACE over next 6 weeks - Admit for Clinical Observation Score 7 - 10: 72.7% MACE over next 6 weeks - Early Invasive Strategies Allergies: Allergies: Allergies Coded Allergies Type Severity Reaction Last Updated Verified lisinopril Allergy Severe 07/11/20 Yes Physical Exam: PE: Constitutional: Well developed, well nourished, no acute distress, non-toxic appearance. HENT: Normocephalic, atraumatic, Eyes: EOMI, conjunctiva normal, no discharge. Neck: Normal range of motion, supple, Cardiovascular: S1/2 present, regular rhythm Lungs & Thorax: bilateral equal chest rise, very tight lung breath sounds with wheezing present, tripod positioning is in the ED with significant external subcostal retractions, 88% on 2 L nc, speaking full sentences very winded Abdomen: soft, no tenderness, Skin: Warm, dry, no erythema, no rash. [] Back: No tenderness, no CVA tenderness. [] Extremities: No tenderness, no cyanosis, no lower extremity edema Neurologic: Alert and oriented X 3, normal motor function, normal sensory function, no focal deficits noted. [] Psychologic: Affect normal, judgement normal, mood normal. [] EKG: EKG: Sinus tachycardia 117 bpm, QTc 479, motion artifact and EKG, no obvious T wave inversions, ST changes or ST depressions, patient with no active chest pain Radiology/Procedures: Radiology/Procedures: []IMAGING REPORT Signed PATIENT: WILMER SUAREZ ACCOUNT: [id number] : 1955 LOCATION: ER AGE: 66 SEX: F EXAM STATUS: REG ER ORD. PHYSICIAN: FRANCO MOSS DO REASON: soa PROCEDURE: PORTABLE CHEST 1V XR CHEST 1V 10/23/2021 12:02 AM INDICATION: Shortness of air COMPARISON: 07/09/2020 TECHNIQUE: Portable frontal view of the chest is provided. FINDINGS: The cardiomediastinal silhouette is within normal limits. Lungs are clear. Calcified mediastinal and right hilar lymphadenopathy appears stable congestive of sequela prior grams exposure. Scattered right lung calcified granuloma are present. Prominence along the right paratracheal stripe appears stable and may represent thyroid goiter versus vascular prominence. Mild chronic interstitial changes. There are no significant pleural effusions. There is no pulmonary vascular congestion. No pneumothorax. No suspicious osseous abnormality. IMPRESSION: There is no acute cardiopulmonary process. Electronically signed by: Nataliya Rizo MD (10/24/2021 12:28 AM) [facility] DICTATED and SIGNED BY: NATALIYA RIZO MD DATE: 10/24/21 [id number] 0 Course & Med Decision Making: Course & Med Decision Making Pertinent Labs and Imaging studies reviewed. (See chart for details) Encounter for COPD exacerbation with physician on arrival. Patient was placed on BiPAP and treated with steroids and duo nebs. Difficult improvement in patient's tachypnea. Oxygenating well on BiPAP. Chest x-ray with no pneumonia. Rapid flu and Covid are negative. Labs with chronic kidney disease. Increased breath sounds after breathing treatments with improvement in wheezing. Will admit for further medical management. Patient stable time of admission agrees with this plan. I have spoken with the patient and/or caregivers. I have explained the patient's condition, diagnosis and treatment plan based on the information available to me at this time. I have answered the patient's and/or caregivers questions and answered any concerns. The patient and/or caregivers have as good an understanding of the patient's diagnosis, condition and treatment plan as can be expected at this point. The patient has been stabilized within the capability of the emergency department. The patient will be transported for further care and management or will be moved to an observation or inpatient service. I have communicated with the staff or medical practitioner taking over this patient's care. [place] Disclaimer: [place] Disclaimer: This electronic medical record was generated, in whole or in part, using a voice recognition dictation system. Departure Departure Impression: Primary Impression: COPD with exacerbation Additional Impression: CKD (chronic kidney disease) Disposition: ADMITTED INPATIENT Admitting Physician: PINEDA (Dr. Her) Condition: GUARDED Referrals: TABBY GOMEZ APRN (PCP) FRANCO MOSS DO Oct 24, 2021 00:17
[2021-10-24 00:29] LABS: BASO # 0.1 x10^3/uL (0.0-0.2); BASO % 1 % (0-3); EOS # 0.7 x10^3/uL (0.0-0.7); EOS % 7 % (0-3); HEMATOCRIT 38.2 % (36.0-47.0); HEMOGLOBIN 12.6 g/dL (12.0-15.5); LYMPH % 9 % (24-48); MEAN CORPUSCULAR HEMOGLOBIN 28 pg (25-35); MEAN CORPUSCULAR HGB CONC 33 g/dL (31-37); MEAN CORPUSCULAR VOLUME 85 fL (79-100); MONO # 0.9 x10^3/uL (0.0-1.1); MONO % 8 % (0-9); NEUT # 8.6 x10^3/uL (1.8-7.7); NEUT % 76 % (31-73); PLATELET COUNT 306 x10^3/uL (140-400); RED BLOOD COUNT 4.47 x10^6/uL (3.50-5.40); RED CELL DISTRIBUTION WIDTH 18.1 % (11.5-14.5); WHITE BLOOD COUNT 11.4 x10^3/uL (4.0-11.0)
--- NOTE | 2021-10-24 00:30 | RAD ---
XR CHEST 1V 10/23/2021 12:02 AM INDICATION: Shortness of air COMPARISON: 07/09/2020 TECHNIQUE: Portable frontal view of the chest is provided. FINDINGS: The cardiomediastinal silhouette is within normal limits. Lungs are clear. Calcified mediastinal and right hilar lymphadenopathy appears stable congestive of sequela prior grams exposure. Scattered righ t lung calcified granuloma are present. Prominence along the right paratracheal stripe appears stable and may represent thyroid goiter versus vascular prominence. Mild chronic interstitial changes. There are no significant pleural effusions. There is no pulmonary vascular congestion. No pneumothora x. No suspicious osseous abnormality. IMPRESSION: There is no acute cardiopulmonary process. Electronically signed by: Tiffanie Real MD (10/24/2021 12:28 AM) [facility]
[2021-10-24 00:45] LABS: CALCIUM 8.8 mg/dL (8.5-10.1); CREATININE 1.5 mg/dL (0.6-1.0); POTASSIUM 3.7 mmol/L (3.5-5.1)
[2021-10-24 00:52] LABS: ALBUMIN 3.7 g/dL (3.4-5.0); ALBUMIN/GLOBULIN RATIO 0.8 (1.0-1.7); TOTAL BILIRUBIN 0.4 mg/dL (0.2-1.0); TOTAL PROTEIN 8.6 g/dL (6.4-8.2)
[2021-10-24 01:14] LABS: INFLUENZA A PATIENT NEGATIVE (NEGATIVE); INFLUENZA B PATIENT NEGATIVE (NEGATIVE)
[2021-10-24 01:37] LABS: BASE EXCESS ABG -2 mmol/L (-3-3); HCO3 ABG 24 mmol/L (21-28); PCO2 ABG 46 mmHg (35-46); PO2 ABG 124 mmHg (65-108); SAT O2 ABG 98 % (92-99)
[2021-10-24 03:18] LABS: BILIRUBIN,URINE NEGATIVE (NEG); CLARITY,URINE CLEAR; COLOR,URINE YELLOW; NITRITE,URINE NEGATIVE (NEG); PH,URINE 5.5 (<5.0-8.0); PROTEIN,URINE 30 mg/dL (NEG-TRACE); UROBILINOGEN,URINE 0.2 mg/dL (0.2 mg/dL)
[2021-10-24 03:48] LABS: BACTERIA,URINE MODERATE /HPF (0-FEW); RBC,URINE OCC /HPF (0-2)
[2021-10-24 04:15] VITALS: BP 149/88
--- NOTE | 2021-10-24 05:01 | EKG ---
[facility] [address] [place] [address] Test Date: 2021-10-24 Test Time: 01:51:09 Pat Name: WILMER SUAREZ Department: Room: [facility] Gender: F Sports Intern: : 1955 Requested By: FRANCO MOSS Order Number: [id number] Reading MD: Jose Rhodes Measurements Intervals [place] Rate: 117 P: 105 TN: 124 QRS: 98 QRSD: 92 T: 62 QT: 340 QTc: 479 Interpretive Statements SINUS TACHYCARDIA NON SPECIFIC ST-T WAVE CHANGES Electronically Signed On 10-29-2021 18:29:38 TOOL DESIGN ENGINEER by Jose Rhodes
[2021-10-24] MEDS ORDERED: Vitamin D PO (06:14)
[2021-10-24] MEDS ORDERED: POTA-112 PO (06:14)
[2021-10-24 07:00] VITALS: BP 147/88
[2021-10-24] MEDS ORDERED: POTASSIUM CHLORIDE 10 MEQ TABLET.ER. PO SCH (08:00)
[2021-10-24] MEDS ORDERED: FLUT1BLS3 IH (08:09)
[2021-10-24] MEDS ORDERED: CHOLECALCIFEROL (VITAMIN D3) 5,000 UNIT CAPSULE PO SCH (09:00)
[2021-10-24] MEDS: IPRATROPIUM/ALBUTEROL 20/100mcg/INH INHALER. INH SCH ×4 (09:06→21:29)
--- NOTE | 2021-10-24 09:07 | PDOC1 ---
History and Physical Date of Service: DOS: DATE: 10/24/21 TIME: 09:05 Chief Complaint: Chief Complain: Shortness of breath History of Present Illness: HPI: 66-year-old female past medical history of hypertension, hyperlipidemia, COPD and asthma, on 2 L home oxygen, presents to the ED brought in by EMS with complaints of shortness of breath, productive cough, fatigue, sore throat and decreased appetite for the past 2 days. 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 Is vaccinated for COVID and boosted. No prior history of COVID- 19 infection. Influenza vaccine is up-to-date. Reports no relief with her inhaler prior to ED arrival. No history of intubations. Denies any current jayshree g use including cocaine or methamphetamines. Past Medical/Surgical History: PMH/PSH: Past Medical History: COPD, Hypertension Past Surgical History: Hysterectomy Allergies: Allergies: Coded Allergies: lisinopril (Verified Allergy, Severe, 07/11/20) constant cough Family History: Family History: Reviewed with no relevant findings in the chart Social History: Social History: Smoking Status: Former Smoker Alcohol Use: None Drug Use: Marijuana Current Medications: Current Medications Current Medications Dexamethasone Sodium Phosphate (Decadron) 10 mg 1X ONCE IV Last administered on 10/24/21at 01:08; Start 10/24/21 at 00:15; Stop 10/24/21 at 00:18; Status DC Albuterol/ Ipratropium (Duoneb) 9 ml 1X ONCE NEB Last administered on 10/24/21at 00:23; Start 10/24/21 at 00:15; Stop 10/24/21 at 00:18; Status DC Sodium Chloride 500 ml @ 500 mls/hr 1X ONCE IV Last administered on 10/24/21at 01:09; Start 10/24/21 at 00:15; Stop 10/24/21 at 01:14; Status DC Lorazepam (Ativan Inj) 0.5 mg 1X ONCE IVP Last administered on 10/24/21at 01:08; Start 10/24/21 at 01:00; Stop 10/24/21 at 01:01; Status DC Vitamin D (Vitamin D3) 5,000 unit DAILY PO ; Start 10/24/21 at 09:00; Stop 10/24/21 at 06:16; Status DC Potassium Chloride (Klor-Con) 10 meq BIDWMEALS PO ; Start 10/24/21 at 08:00; Stop 10/24/21 at 06:16; Status DC Albuterol/ Ipratropium (Combivent Respimat 20-100 Mcg) 1 puff RTQID INH ; Start 10/24/21 at 09:00 Active Scripts Active Ventolin Hfa Inhaler (Albuterol Sulfate) 18 Gm Hfa.aer.ad 2 Puff INH Q4HRS Spiriva (Tiotropium [place]) 18 Mcg Cap.w.dev 1 Cap IH DAILY Reported Trelegy Ellipta 100-62.5-25 (Fluticasone/Umeclidin/Vilanter) 1 Each Blst.w.dev 1 Each IH BID Klor-Con 10 (Potassium Chloride) 10 Meq Tablet.er 10 Meq PO BID [Vitamin D] 5,000 Mg PO DAILY Norvasc (Amlodipine Besylate) 10 Mg Tablet 10 Mg PO DAILY Proair Hfa Inhaler (Albuterol Sulfate) 8.5 Gm Hfa.aer.ad 1 Puff INH PRN Q6HRS PRN Advair 250-50 Diskus (Fluticasone/Salmeterol) 1 Each Disk.w.dev 1 Puff IH BID ROS: Review of Systems Review of System REVIEW OF SYSTEMS: GENERAL: Denies weakness SKIN: No bruising, hair changes or rashes. EYES: No blurred, double or loss of vision. NOSE AND THROAT: No history of nosebleeds, hoarseness or sore throat. HEART: No history of palpitations, chest pain or shortness of breath on exertion. LUNGS: Short of breath GASTROINTESTINAL: Denies changes in appetite, nausea, vomiting, diarrhea or constipation. GENITOURINARY: No history of frequency, urgency, hesitancy or nocturia. NEUROLOGIC: Denies history of numbness, tingling, or tremor. PSYCHIATRIC: No history of panic, anxiety or depression. ENDOCRINE: No history of heat or cold intolerance, polyuria or polydipsia. EXTREMITIES: Denies joint pain, pain on walking or stiffness. Physical Exam: Vital Signs: Vital Signs Date Time Temp Pulse Resp B/P (MAP) Pulse Ox O2 Delivery O2 Flow Rate FiO2 10/24/21 08:10 95 Nasal Cannula 3.0 10/24/21 07:00 98.0 111 18 147/88 (107) 98.0 Physcial Exam: General: Well developed, well nourished, no acute distress, well appearing HEENT: Pupils equally round and reactive to light, EOMI, no discharge, normal conjunctiva Neck: Supple, no nuchal rigidity, no JVD, trachea midline, no tenderness Cardiac: RRR, no murmurs, no gallops, no rubs Chest/Lungs: CTAB, no wheeze, no rhonchi, no crackles Abdomen: soft, non-distended, no guarding, no peritoneal signs, non-tender Back: No tenderness Extremities: no edema, pulses intact, non-tender,capillary refill <3 sec bilateral upper and lower extremities, Neuro: Alert and oriented x 4, no focal deficits, normal speech Labs: Labs: Laboratory Tests Test 10/24/21 00:17 10/24/21 00:48 10/24/21 01:20 10/24/21 03:11 White Blood Count 11.4 x10^3/uL (4.0-11.0) Red Blood Count 4.47 x10^6/uL (3.50-5.40) Hemoglobin 12.6 g/dL (12.0-15.5) Hematocrit 38.2 % (36.0-47.0) Mean Corpuscular Volume 85 fL (79-100) Mean Corpuscular Hemoglobin 28 pg (25-35) Mean Corpuscular Hemoglobin Concent 33 g/dL (31-37) Red Cell Distribution Width 18.1 % (11.5-14.5) Platelet Count 306 x10^3/uL (140-400) Neutrophils (%) (Auto) 76 % (31-73) Lymphocytes (%) (Auto) 9 % (24-48) Monocytes (%) (Auto) 8 % (0-9) Eosinophils (%) (Auto) 7 % (0-3) Basophils (%) (Auto) 1 % (0-3) Neutrophils # (Auto) 8.6 x10^3/uL (1.8-7.7) Lymphocytes # (Auto) 1.0 x10^3/uL (1.0-4.8) Monocytes # (Auto) 0.9 x10^3/uL (0.0-1.1) Eosinophils # (Auto) 0.7 x10^3/uL (0.0-0.7) Basophils # (Auto) 0.1 x10^3/uL (0.0-0.2) Sodium Level 142 mmol/L (136-145) Potassium Level 3.7 mmol/L (3.5-5.1) Chloride Level 101 mmol/L (98-107) Carbon Dioxide Level 29 mmol/L (21-32) Anion Gap 12 (6-14) Blood Urea Nitrogen 16 mg/dL (7-20) Creatinine 1.5 mg/dL (0.6-1.0) Estimated GFR (Cockcroft-Gault) 42.0 BUN/Creatinine Ratio 11 (6-20) Glucose Level 139 mg/dL (70-99) Lactic Acid Level 0.8 mmol/L (0.4-2.0) Calcium Level 8.8 mg/dL (8.5-10.1) Magnesium Level 1.8 mg/dL (1.8-2.4) Total Bilirubin 0.4 mg/dL (0.2-1.0) Aspartate Amino Transf (AST/SGOT) 18 U/L (15-37) Alanine Aminotransferase (ALT/SGPT) 22 U/L (14-59) Alkaline Phosphatase 94 U/L (46-116) Creatine Kinase 349 U/L (26-192) Troponin I High Sensitivity 8 ng/L (4-50) OA-Pxv-V-Type Natriuretic Peptide 66 pg/mL (0-124) Total Protein 8.6 g/dL (6.4-8.2) Albumin 3.7 g/dL (3.4-5.0) Albumin/Globulin Ratio 0.8 (1.0-1.7) Influenza Type A Antigen Negative (NEGATIVE) Influenza Type B Antigen Negative (NEGATIVE) SARS-CoV-2 Antigen (Rapid) Negative (NEGATIVE) O2 Saturation 98 % (92-99) Arterial Blood pH 7.34 (7.35-7.45) Arterial Blood pCO2 at Patient Temp 46 mmHg (35-46) Arterial Blood pO2 at Patient Temp 124 mmHg (65-108) Arterial Blood HCO3 24 mmol/L (21-28) Arterial Blood Base Excess -2 mmol/L (-3-3) FiO2 40 (bipap) Urine Collection Type Unknown Urine Color Yellow Urine Clarity Clear Urine pH 5.5 (<5.0-8.0) Urine Specific [place] 1.015 (1.000-1.030) Urine Protein 30 mg/dL (NEG-TRACE) Urine Glucose (UA) Negative mg/dL (NEG) Urine Ketones (Stick) Negative mg/dL (NEG) Urine Blood Small (NEG) Urine Nitrite Negative (NEG) Urine Bilirubin Negative (NEG) Urine Urobilinogen Dipstick 0.2 mg/dL (0.2 mg/dL) Urine Leukocyte Esterase Moderate (NEG) Urine RBC Occ /HPF (0-2) Urine WBC 11-20 /HPF (0-4) Urine Squamous Epithelial Cells Mod /LPF Urine Bacteria Moderate /HPF (0-FEW) Urine Mucus Slight /LPF Laboratory Tests Test 10/24/21 00:17 10/24/21 00:48 10/24/21 01:20 10/24/21 03:11 White Blood Count 11.4 x10^3/uL (4.0-11.0) Red Blood Count 4.47 x10^6/uL (3.50-5.40) Hemoglobin 12.6 g/dL (12.0-15.5) Hematocrit 38.2 % (36.0-47.0) Mean Corpuscular Volume 85 fL (79-100) Mean Corpuscular Hemoglobin 28 pg (25-35) Mean Corpuscular Hemoglobin Concent 33 g/dL (31-37) Red Cell Distribution Width 18.1 % (11.5-14.5) Platelet Count 306 x10^3/uL (140-400) Neutrophils (%) (Auto) 76 % (31-73) Lymphocytes (%) (Auto) 9 % (24-48) Monocytes (%) (Auto) 8 % (0-9) Eosinophils (%) (Auto) 7 % (0-3) Basophils (%) (Auto) 1 % (0-3) Neutrophils # (Auto) 8.6 x10^3/uL (1.8-7.7) Lymphocytes # (Auto) 1.0 x10^3/uL (1.0-4.8) Monocytes # (Auto) 0.9 x10^3/uL (0.0-1.1) Eosinophils # (Auto) 0.7 x10^3/uL (0.0-0.7) Basophils # (Auto) 0.1 x10^3/uL (0.0-0.2) Sodium Level 142 mmol/L (136-145) Potassium Level 3.7 mmol/L (3.5-5.1) Chloride Level 101 mmol/L (98-107) Carbon Dioxide Level 29 mmol/L (21-32) Anion Gap 12 (6-14) Blood Urea Nitrogen 16 mg/dL (7-20) Creatinine 1.5 mg/dL (0.6-1.0) Estimated GFR (Cockcroft-Gault) 42.0 BUN/Creatinine Ratio 11 (6-20) Glucose Level 139 mg/dL (70-99) Lactic Acid Level 0.8 mmol/L (0.4-2.0) Calcium Level 8.8 mg/dL (8.5-10.1) Magnesium Level 1.8 mg/dL (1.8-2.4) Total Bilirubin 0.4 mg/dL (0.2-1.0) Aspartate Amino Transf (AST/SGOT) 18 U/L (15-37) Alanine Aminotransferase (ALT/SGPT) 22 U/L (14-59) Alkaline Phosphatase 94 U/L (46-116) Creatine Kinase 349 U/L (26-192) Troponin I High Sensitivity 8 ng/L (4-50) LB-Abh-X-Type Natriuretic Peptide 66 pg/mL (0-124) Total Protein 8.6 g/dL (6.4-8.2) Albumin 3.7 g/dL (3.4-5.0) Albumin/Globulin Ratio 0.8 (1.0-1.7) Influenza Type A Antigen Negative (NEGATIVE) Influenza Type B Antigen Negative (NEGATIVE) SARS-CoV-2 Antigen (Rapid) Negative (NEGATIVE) O2 Saturation 98 % (92-99) Arterial Blood pH 7.34 (7.35-7.45) Arterial Blood pCO2 at Patient Temp 46 mmHg (35-46) Arterial Blood pO2 at Patient Temp 124 mmHg (65-108) Arterial Blood HCO3 24 mmol/L (21-28) Arterial Blood Base Excess -2 mmol/L (-3-3) FiO2 40 (bipap) Urine Collection Type Unknown Urine Color Yellow Urine Clarity Clear Urine pH 5.5 (<5.0-8.0) Urine Specific [place] 1.015 (1.000-1.030) Urine Protein 30 mg/dL (NEG-TRACE) Urine Glucose (UA) Negative mg/dL (NEG) Urine Ketones (Stick) Negative mg/dL (NEG) Urine Blood Small (NEG) Urine Nitrite Negative (NEG) Urine Bilirubin Negative (NEG) Urine Urobilinogen Dipstick 0.2 mg/dL (0.2 mg/dL) Urine Leukocyte Esterase Moderate (NEG) Urine RBC Occ /HPF (0-2) Urine WBC 11-20 /HPF (0-4) Urine Squamous Epithelial Cells Mod /LPF Urine Bacteria Moderate /HPF (0-FEW) Urine Mucus Slight /LPF Images: Images PROCEDURE: PORTABLE CHEST 1V XR CHEST 1V 10/23/2021 12:02 AM INDICATION: Shortness of air COMPARISON: 07/09/2020 TECHNIQUE: Portable frontal view of the chest is provided. FINDINGS: The cardiomediastinal silhouette is within normal limits. Lungs are clear. Calcified mediastinal and right hilar lymphadenopathy appears stable congestive of sequela prior grams exposure. Scattered right lung calcified granuloma are present. Prominence along the right paratracheal stripe appears stable and may represent thyroid goiter versus vascular prominence. Mild chronic interstitial changes. There are no significant pleural effusions. There is no pulmonary vascular congestion. No pneumothorax. No suspicious osseous abnormality. IMPRESSION: There is no acute cardiopulmonary process. Assessment/Plan Assessment/Plan Acute hypoxic respiratory failure requiring BiPAP support Acute COPD exacerbation MONISHA due to vasomotor nephropathy Pyuria Admit to hospitalist service for further management O2 supplementation and BiPAP support as needed to maintain O2 saturation between 88 to 92% Hold off on antibiotics at this time as patient does not have any symptoms Continue IV steroids Continue IV fluids Combivent inhaler Pending Covid PCR test Lovenox for DVT prophylaxis Protonix while on steroids GI prophylaxis ADA diet CODE STATUS full Discussed with RN and SW Disposition inpatient management as above DPOA: Daughter In addition to my E/M visit, advance care planning done with A total time of 20 minutes was spent from 11:00 to 1120 face to face in discussion regarding the patient's goals of care, CODE STATUS. Justifications for Admission Other Justification IGNACIA ST MD Oct 24, 2021 09:07
[2021-10-24 11:00] VITALS: BP 130/84
[2021-10-24] MEDS ORDERED: ALBUTEROL SULFATE 8GM INHALER. INH PRN (12:30)
--- NOTE | 2021-10-24 12:54 | NUR ---
SS following for discharge planning. SS reviewed pt chart and discussed with pt RN. Pt is from home and is currently requiring oxygen at three liters nasal canula. Pt has home oxygen. COVID19 test pending. SS will continue to follow for discharge planning.
[2021-10-24] MEDS: FLUTICASONE/VILANTEROL 200/25 INHALER. INH SCH (13:05)
[2021-10-24 15:00] VITALS: BP 142/91
[2021-10-24] MEDS ORDERED: diphenhydrAMINE HCL 25 MG CAPSULE PO PRN ×2 (15:30)
[2021-10-24] MEDS ORDERED: DEXTROSE 50% 25 GM / 50ML DISP.SYRIN. IV PRN (15:30)
[2021-10-24] MEDS ORDERED: diphenhydrAMINE 50 MG/ML VIAL IVP PRN (15:30)
[2021-10-24] MEDS ORDERED: DOCUSATE SODIUM 100 MG CAPSULE. PO PRN (15:30)
[2021-10-24] MEDS ORDERED: ACETAMINOPHEN 325 MG TABLET. PO PRN (15:30)
[2021-10-24] MEDS ORDERED: ONDANSETRON PF 4 MG/2 ML VIAL. IVP PRN (15:30)
[2021-10-24] MEDS ORDERED: SENNOSIDES 8.6 MG TABLET PO PRN (15:30)
[2021-10-24] MEDS ORDERED: ZOLPIDEM 5 MG TABLET. PO PRN (15:30)
[2021-10-24] MEDS ORDERED: PROCHLORPERAZINE 10 MG/2 ML VIAL. IV PRN (15:30)
[2021-10-24] MEDS: IV NORMAL SALINE 1000ML BAG 1,000 ML IV SCH (16:35)
[2021-10-24] MEDS: ENOXAPARIN 40 MG/0.4 ML SYRINGE. SQ SCH (16:42)
[2021-10-24] MEDS: methylPREDNISolone SOD SUCC PF 40 MG/ML VIAL. IV SCH ×2 (17:36→21:17)
[2021-10-24] MEDS: IPRATRPIUM/ALBUTEROL 0.5/2.5MG 3 ML NEBU. NEB SCH (19:49)
[2021-10-24 19:59] VITALS: BP 156/91
[2021-10-24] MEDS ORDERED: NON FORMULARY ITEM (Fluticasone/Umeclidin/Vilanter (Trelegy Ellipta 100-62.5-25) 1 EACH) IH SCH (21:00)
[2021-10-24] MEDS ORDERED: NON FORMULARY ITEM (Fluticasone/Salmeterol (Advair 250-50 Diskus) 1 PUFF) IH SCH (21:00)
[2021-10-24 22:42] VITALS: BP 138/86
[2021-10-24] MEDS: LORazepam 0.5 MG TABLET PO PRN (23:56)
[2021-10-25 03:48] VITALS: BP 144/77
[2021-10-25 04:26] LABS: BASO % 0 % (0-3); EOS % 0 % (0-3); HEMATOCRIT 36.8 % (36.0-47.0); LYMPH # 0.6 x10^3/uL (1.0-4.8); LYMPH % 6 % (24-48); MEAN CORPUSCULAR HEMOGLOBIN 28 pg (25-35); MEAN CORPUSCULAR HGB CONC 33 g/dL (31-37); MEAN CORPUSCULAR VOLUME 86 fL (79-100); MONO # 0.1 x10^3/uL (0.0-1.1); MONO % 1 % (0-9); NEUT # 9.2 x10^3/uL (1.8-7.7); NEUT % 93 % (31-73); PLATELET COUNT 167 x10^3/uL (140-400); RED BLOOD COUNT 4.26 x10^6/uL (3.50-5.40); RED CELL DISTRIBUTION WIDTH 18.8 % (11.5-14.5); WHITE BLOOD COUNT 9.9 x10^3/uL (4.0-11.0)
[2021-10-25 04:48] LABS: CALCIUM 8.8 mg/dL (8.5-10.1); CREATININE 1.4 mg/dL (0.6-1.0); GFR 45.5; PHOSPHORUS 3.4 mg/dL (2.6-4.7); POTASSIUM 3.8 mmol/L (3.5-5.1)
[2021-10-25] MEDS: IV NORMAL SALINE 1000ML BAG 1,000 ML IV SCH ×2 (05:56→11:30)
[2021-10-25] MEDS: PANTOPRAZOLE 40 MG TABLET.DR. PO SCH (05:59)
[2021-10-25] MEDS: methylPREDNISolone SOD SUCC PF 40 MG/ML VIAL. IV SCH ×3 (05:59→21:15)
[2021-10-25 07:00] VITALS: BP 154/97
[2021-10-25] MEDS: IPRATRPIUM/ALBUTEROL 0.5/2.5MG 3 ML NEBU. NEB SCH ×4 (07:50→18:36)
[2021-10-25] MEDS: IPRATROPIUM/ALBUTEROL 20/100mcg/INH INHALER. INH SCH ×4 (08:00→21:14)
[2021-10-25] MEDS: FLUTICASONE/VILANTEROL 200/25 INHALER. INH SCH (08:36)
[2021-10-25] MEDS ORDERED: NON FORMULARY ITEM (Tiotropium Bromide (Spiriva) 1 CAP) IH SCH (09:00)
--- NOTE | 2021-10-25 10:45 | NUR ---
inhalers not given, as breathing tx have been re-initiated.
[2021-10-25 11:00] VITALS: BP 143/103
--- NOTE | 2021-10-25 11:22 | NUR ---
SS following up with discharge planning. SS reviewed pt chart and discussed with pt RN. Pt is currently requiring oxygen at three liters nasal canula. COVID19 negative. Pt has home oxygen. Pt on IV Solu-Medrol. SS will continue to follow for discharge planning.
[2021-10-25 15:00] VITALS: BP 141/78
[2021-10-25] MEDS: ENOXAPARIN 40 MG/0.4 ML SYRINGE. SQ SCH (15:30)
--- NOTE | 2021-10-25 16:08 | PDOC ---
[employer] PROGRESS NOTE Date of Service DOS: DATE: 10/25/21 TIME: 16:06 Chief Complaint Chief Complaint Acute hypoxic respiratory failure requiring BiPAP support on admit, now on NC Acute COPD exacerbation MONISHA due to vasomotor nephropathy Pyuria History of Present Illness History of Present Illness taper the IV steroids to Q12 from q6 O2 supplementation to maintain O2 saturation between 88 to 92% Continue IV fluids Combivent inhaler, nebs inh q4 Lovenox for DVT prophylaxis Protonix while on steroids GI prophylaxis ADA diet CODE STATUS full Discussed with RN and SW Vitals/I&O Vitals/I&O: Vital Signs Date Time Temp Pulse Resp B/P (MAP) Pulse Ox O2 Delivery O2 Flow Rate FiO2 10/25/21 15:58 100 Nasal Cannula 5.0 10/25/21 15:00 97.6 105 18 141/78 (99) 97.6 I & O 10/24/21 10/24/21 10/25/21 15:00 23:00 07:00 Intake Total 298 ml 700 ml Output Total 300 ml 201 ml Balance -2 ml -201 ml 700 ml Physical Exam General: Alert, Cooperative Heart: Normal S2 Lungs: Wheezing, Crackles Abdomen: No masses Extremities: No clubbing, No edema, Normal pulses, No tenderness/swelling Skin: No rashes Labs Labs: Laboratory Tests Test 10/25/21 04:00 White Blood Count 9.9 x10^3/uL (4.0-11.0) Red Blood Count 4.26 x10^6/uL (3.50-5.40) Hemoglobin 12.0 g/dL (12.0-15.5) Hematocrit 36.8 % (36.0-47.0) Mean Corpuscular Volume 86 fL (79-100) Mean Corpuscular Hemoglobin 28 pg (25-35) Mean Corpuscular Hemoglobin Concent 33 g/dL (31-37) Red Cell Distribution Width 18.8 % (11.5-14.5) Platelet Count 167 x10^3/uL (140-400) Neutrophils (%) (Auto) 93 % (31-73) Lymphocytes (%) (Auto) 6 % (24-48) Monocytes (%) (Auto) 1 % (0-9) Eosinophils (%) (Auto) 0 % (0-3) Basophils (%) (Auto) 0 % (0-3) Neutrophils # (Auto) 9.2 x10^3/uL (1.8-7.7) Lymphocytes # (Auto) 0.6 x10^3/uL (1.0-4.8) Monocytes # (Auto) 0.1 x10^3/uL (0.0-1.1) Eosinophils # (Auto) 0.0 x10^3/uL (0.0-0.7) Basophils # (Auto) 0.0 x10^3/uL (0.0-0.2) Sodium Level 139 mmol/L (136-145) Potassium Level 3.8 mmol/L (3.5-5.1) Chloride Level 103 mmol/L (98-107) Carbon Dioxide Level 26 mmol/L (21-32) Anion Gap 10 (6-14) Blood Urea Nitrogen 17 mg/dL (7-20) Creatinine 1.4 mg/dL (0.6-1.0) Estimated GFR (Cockcroft-Gault) 45.5 Glucose Level 171 mg/dL (70-99) Calcium Level 8.8 mg/dL (8.5-10.1) Phosphorus Level 3.4 mg/dL (2.6-4.7) Magnesium Level 2.0 mg/dL (1.8-2.4) Review of Systems Review of Systems: cough, dyspnea, wheeze Assessment and Plan Assessmemt and Plan Problems Medical Problems: (1) CKD (chronic kidney disease) Status: Acute (2) COPD with exacerbation Status: Acute Comment Review of Relevant I have reviewed the following items donnie (where applicable) has been applied. Medications: Current Medications Medications (Trade) Dose Ordered Sig/Summer Route PRN Reason Start Time Stop Time Status Last Admin Dose Admin Methylprednisolone Sodium Succinate (SOLU-Medrol 40MG VIAL) 40 mg Q6HRS IV 10/24/21 18:00 10/25/21 11:54 Pantoprazole Sodium (Protonix) 40 mg DAILYAC PO 10/25/21 07:30 10/25/21 05:59 Albuterol/ Ipratropium (Duoneb) 3 ml RTQID NEB 10/24/21 17:30 10/25/21 15:57 Justifications for Admission Other Justification COPD exacerbation DARIAN RANKIN MD Oct 25, 2021 16:07
[2021-10-25 19:00] VITALS: BP_SYST 135; BP_SYST 158; BP_DIAS 61; BP_DIAS 79
[2021-10-25 23:00] VITALS: BP 148/84
[2021-10-25] MEDS: LORazepam 0.5 MG TABLET PO PRN (23:27)
[2021-10-26 03:21] VITALS: BP 154/93
[2021-10-26] MEDS: PANTOPRAZOLE 40 MG TABLET.DR. PO SCH (05:48)
[2021-10-26] MEDS: IV NORMAL SALINE 1000ML BAG 1,000 ML IV SCH ×2 (05:58→07:30)
[2021-10-26] MEDS: IPRATRPIUM/ALBUTEROL 0.5/2.5MG 3 ML NEBU. NEB SCH ×4 (06:19→21:32)
[2021-10-26 06:41] LABS: BASO % 0 % (0-3); EOS % 0 % (0-3); HEMATOCRIT 35.1 % (36.0-47.0); HEMOGLOBIN 11.4 g/dL (12.0-15.5); LYMPH # 0.7 x10^3/uL (1.0-4.8); LYMPH % 4 % (24-48); MEAN CORPUSCULAR HEMOGLOBIN 28 pg (25-35); MEAN CORPUSCULAR HGB CONC 33 g/dL (31-37); MEAN CORPUSCULAR VOLUME 86 fL (79-100); MONO # 0.4 x10^3/uL (0.0-1.1); MONO % 3 % (0-9); NEUT # 14.8 x10^3/uL (1.8-7.7); NEUT % 93 % (31-73); PLATELET COUNT 267 x10^3/uL (140-400); RED BLOOD COUNT 4.08 x10^6/uL (3.50-5.40); RED CELL DISTRIBUTION WIDTH 18.6 % (11.5-14.5); WHITE BLOOD COUNT 15.9 x10^3/uL (4.0-11.0)
[2021-10-26 07:00] VITALS: BP 152/83
[2021-10-26 07:01] LABS: CALCIUM 8.3 mg/dL (8.5-10.1); CREATININE 1.4 mg/dL (0.6-1.0); GFR 45.5; MAGNESIUM 1.7 mg/dL (1.8-2.4); POTASSIUM 3.6 mmol/L (3.5-5.1)
[2021-10-26] MEDS: methylPREDNISolone SOD SUCC PF 40 MG/ML VIAL. IV SCH (07:45)
[2021-10-26] MEDS: IPRATROPIUM/ALBUTEROL 20/100mcg/INH INHALER. INH SCH ×4 (08:00→19:25)
[2021-10-26 08:11] LABS: % LYMPHS 4 % (24-48); % MONOS 4 % (0-10); % SEGS 92 % (35-66)
[2021-10-26 08:12] LABS: PLT ESTIMATE ADEQUATE (ADEQUATE)
[2021-10-26] MEDS: FLUTICASONE/VILANTEROL 200/25 INHALER. INH SCH (09:00)
--- NOTE | 2021-10-26 09:40 | NUR ---
NON ADMIN INHALER, BECAUSE NOW GETTING NEBS
[2021-10-26] MEDS ORDERED: POTA-112 PO (10:38)
[2021-10-26] MEDS ORDERED: PRED-220 PO (10:38)
--- NOTE | 2021-10-26 10:41 | SNU/HH DC ---
DISCHARGE WITH HOME HEALTH DISCHARGE INFORMATION: Discharge Date: Oct 26, 2021 Final Diagnosis: COPD wth acute bronchitis Problems Medical Problems: (1) CKD (chronic kidney disease) Status: Acute (2) COPD with exacerbation Status: Acute Condition on Discharge: Stable CODE STATUS: Code Status: Full HOME HEALTH: Face to Face: I certify this patient is under my care and that I had a face to face encounter that meets the physician face to face encounter requirements with this patient on 10/26 Medical Complications: COPD Longterm For: Assess Cardiopulm Status, Assess & Educate Safety RN For Eval/Treatment: Yes Physical Therapy For: Evalulation/Treatment Occupational Therapy For: Evaluation/Treatment Pt Meets Homebound Status: Unsteady balance w/ amb,, Other: (review hypoxia status and meds) POST DISCHARGE ORDERS: Activity Instructions for Disc: No restrictions Weight Bearing Status after Di: As tolerated DIET AFTER DISCHARGE: Regular CHECKS AFTER DISCHARGE: Checks after discharge: Check blood press - daily TREATMENT/EQUIPMENT ORDERS: Adaptive Equipment Issued: None Discharge Respiratory Equipmen: Oxygen CERTIFICATION STATEMENT: Certification Statement: Certification Statement: Based on the above finding, I certify that this patient is confined to the home and needs intermittent assisted care, physical therapy and/or speech therapy, or continues to need occupational therapy.~ This patient is under my care, and I have initiated the establishment of the plan of care.~ This patient will be followed by myself or a community physician who will periodically review the plan of care. Home Meds Active Scripts Prednisone (PREDNISONE ) 10 Mg Tablet, 10 MG PO UD for COPD AE, #30 TAB 0 Refills Take 5 tablets by mouth daily for 2 days, then take 4 tablets by mouth daily for 2 days, then take 3 tablets by mouth daily for 2 days, then take 2 tablets by mouth daily for 2 days, then take 1 tablets by mouth daily for 2 days, then stop. Prov:DARIAN RANKIN MD 10/26/21 Potassium Chloride (Klor-Con 10) 10 Meq Tablet.er, 10 MEQ PO DAILY for replace potassium, #30 TAB.SR Prov:DARIAN RANKIN MD 10/26/21 Albuterol Sulfate (VENTOLIN HFA INHALER) 18 Gm Hfa.aer.ad, 2 PUFF INH Q4HRS for FOR ASTHMA, #1 INHALER 0 Refills Prov:IMAN MCLEOD APRN 02/19/19 Tiotropium [place] (SPIRIVA) 18 Mcg Cap.w.dev, 1 CAP IH DAILY, #30 CAP 0 Refills Prov:AZUCENA PHIPPS DO 10/25/16 Reported Medications Fluticasone/Umeclidin/Vilanter (Trelegy Ellipta 100-62.5-25) 1 Each Blst.w.dev, 1 EACH IH BID for asthma 10/24/21 [Vitamin D] No Conflict Check, 5000 MG PO DAILY 10/24/21 Amlodipine Besylate (NORVASC) 10 Mg Tablet, 10 MG PO DAILY for Hyptension , TAB 01/25/19 Discontinued Reported Medications Albuterol Sulfate (PROAIR HFA INHALER) 8.5 Gm Hfa.aer.ad, 1 PUFF INH PRN Q6HRS PRN for SHORTNESS OF BREATH, INHALER 0 Refills 01/25/19 Fluticasone/Salmeterol (ADVAIR 250-50 DISKUS) 1 Each Disk.w.dev, 1 PUFF IH BID for asthma, #1 INHALER 5 Refills 01/25/19 DARIAN RANKIN MD Oct 26, 2021 10:41
--- NOTE | 2021-10-26 10:43 | PDOC3 ---
Discharge Summary Visit Information Date of Admission: Oct 24, 2021 Date of Discharge: Oct 26, 2021 Final Diagnosis Acute hypoxic respiratory failure requiring BiPAP support on admit, now on NC, 2 liters Acute COPD exacerbation MONISHA due to vasomotor nephropathy, likely CKD 3, Pyuria Problems Medical Problems: (1) CKD (chronic kidney disease) Status: Acute (2) COPD with exacerbation Status: Acute Brief Hospital Course Allergies Allergies Coded Allergies Type Severity Reaction Last Updated Verified lisinopril Adverse Reaction Intermediate 10/25/21 Yes Vital Signs Vital Signs Date Time Temp Pulse Resp B/P (MAP) Pulse Ox O2 Delivery O2 Flow Rate FiO2 10/26/21 08:00 Nasal Cannula 3.0 10/26/21 07:47 139/81 10/26/21 07:00 97.1 102 20 96 97.1 Lab Results Laboratory Tests Test 10/25/21 04:00 10/26/21 05:35 White Blood Count 9.9 x10^3/uL (4.0-11.0) 15.9 x10^3/uL (4.0-11.0) Red Blood Count 4.26 x10^6/uL (3.50-5.40) 4.08 x10^6/uL (3.50-5.40) Hemoglobin 12.0 g/dL (12.0-15.5) 11.4 g/dL (12.0-15.5) Hematocrit 36.8 % (36.0-47.0) 35.1 % (36.0-47.0) Mean Corpuscular Volume 86 fL (79-100) 86 fL (79-100) Mean Corpuscular Hemoglobin 28 pg (25-35) 28 pg (25-35) Mean Corpuscular Hemoglobin Concent 33 g/dL (31-37) 33 g/dL (31-37) Red Cell Distribution Width 18.8 % (11.5-14.5) 18.6 % (11.5-14.5) Platelet Count 167 x10^3/uL (140-400) 267 x10^3/uL (140-400) Neutrophils (%) (Auto) 93 % (31-73) 93 % (31-73) Lymphocytes (%) (Auto) 6 % (24-48) 4 % (24-48) Monocytes (%) (Auto) 1 % (0-9) 3 % (0-9) Eosinophils (%) (Auto) 0 % (0-3) 0 % (0-3) Basophils (%) (Auto) 0 % (0-3) 0 % (0-3) Neutrophils # (Auto) 9.2 x10^3/uL (1.8-7.7) 14.8 x10^3/uL (1.8-7.7) Lymphocytes # (Auto) 0.6 x10^3/uL (1.0-4.8) 0.7 x10^3/uL (1.0-4.8) Monocytes # (Auto) 0.1 x10^3/uL (0.0-1.1) 0.4 x10^3/uL (0.0-1.1) Eosinophils # (Auto) 0.0 x10^3/uL (0.0-0.7) 0.0 x10^3/uL (0.0-0.7) Basophils # (Auto) 0.0 x10^3/uL (0.0-0.2) 0.0 x10^3/uL (0.0-0.2) Sodium Level 139 mmol/L (136-145) 144 mmol/L (136-145) Potassium Level 3.8 mmol/L (3.5-5.1) 3.6 mmol/L (3.5-5.1) Chloride Level 103 mmol/L (98-107) 104 mmol/L (98-107) Carbon Dioxide Level 26 mmol/L (21-32) 27 mmol/L (21-32) Anion Gap 10 (6-14) 13 (6-14) Blood Urea Nitrogen 17 mg/dL (7-20) 16 mg/dL (7-20) Creatinine 1.4 mg/dL (0.6-1.0) 1.4 mg/dL (0.6-1.0) Estimated GFR (Cockcroft-Gault) 45.5 45.5 Glucose Level 171 mg/dL (70-99) 138 mg/dL (70-99) Calcium Level 8.8 mg/dL (8.5-10.1) 8.3 mg/dL (8.5-10.1) Phosphorus Level 3.4 mg/dL (2.6-4.7) Magnesium Level 2.0 mg/dL (1.8-2.4) 1.7 mg/dL (1.8-2.4) Segmented Neutrophils % 92 % (35-66) Lymphocytes % 4 % (24-48) Monocytes % 4 % (0-10) Platelet Estimate Adequate (ADEQUATE) Laboratory Tests Test 10/26/21 05:35 White Blood Count 15.9 x10^3/uL (4.0-11.0) Red Blood Count 4.08 x10^6/uL (3.50-5.40) Hemoglobin 11.4 g/dL (12.0-15.5) Hematocrit 35.1 % (36.0-47.0) Mean Corpuscular Volume 86 fL (79-100) Mean Corpuscular Hemoglobin 28 pg (25-35) Mean Corpuscular Hemoglobin Concent 33 g/dL (31-37) Red Cell Distribution Width 18.6 % (11.5-14.5) Platelet Count 267 x10^3/uL (140-400) Neutrophils (%) (Auto) 93 % (31-73) Lymphocytes (%) (Auto) 4 % (24-48) Monocytes (%) (Auto) 3 % (0-9) Eosinophils (%) (Auto) 0 % (0-3) Basophils (%) (Auto) 0 % (0-3) Neutrophils # (Auto) 14.8 x10^3/uL (1.8-7.7) Lymphocytes # (Auto) 0.7 x10^3/uL (1.0-4.8) Monocytes # (Auto) 0.4 x10^3/uL (0.0-1.1) Eosinophils # (Auto) 0.0 x10^3/uL (0.0-0.7) Basophils # (Auto) 0.0 x10^3/uL (0.0-0.2) Segmented Neutrophils % 92 % (35-66) Lymphocytes % 4 % (24-48) Monocytes % 4 % (0-10) Platelet Estimate Adequate (ADEQUATE) Sodium Level 144 mmol/L (136-145) Potassium Level 3.6 mmol/L (3.5-5.1) Chloride Level 104 mmol/L (98-107) Carbon Dioxide Level 27 mmol/L (21-32) Anion Gap 13 (6-14) Blood Urea Nitrogen 16 mg/dL (7-20) Creatinine 1.4 mg/dL (0.6-1.0) Estimated GFR (Cockcroft-Gault) 45.5 Glucose Level 138 mg/dL (70-99) Calcium Level 8.3 mg/dL (8.5-10.1) Magnesium Level 1.7 mg/dL (1.8-2.4) Brief Hospital Course Ms. Correia is a 66 old female, admit with cough, dyspnea, weakness, ekta rwith steroids, nebs Discharge Information Condition at Discharge: Improved Follow Up: Weeks Disposition/Orders: D/C to Home w/ HH Scheduled Albuterol Sulfate (Ventolin Hfa Inhaler) 18 Gm Hfa.aer.ad, 2 PUFF INH Q4HRS for FOR ASTHMA, #1 Ref 0 Prescribed by: Morelia Hernandez APRN on 02/19/19 1634 Last Action: Converted on 10/24/211200 by IGNA[address]IA [address] MD Amlodipine Besylate (Norvasc) 10 Mg Tablet, 10 MG PO DAILY for Hyptension , (Reported) Entered as Reported by: JOE COUCH RN on 01/25/19 0224 Last Taken: Unknown Dose on 10/23/21 0800 Last Action: Continued on 10/24/211200 by [address] MD Fluticasone/Umeclidin/Vilanter (Trelegy Ellipta 100-62.5-25) 1 Each Blst.w.dev, 1 EACH IH BID for asthma, (Reported) Entered as Reported by: LINDY BOWLING on 10/24/21 0809 Last Taken: Unknown Dose on 10/22/21 1100 Last Action: Converted on 10/24/21[address] MD Potassium Chloride (Klor-Con 10) 10 Meq Tablet.er, 10 MEQ PO DAILY for replace potassium, #30 Prescribed by: DARIAN RANKIN on 10/26/21 1038 Prednisone (Prednisone ) 10 Mg Tablet, 10 MG PO UD for COPD AE, #30 Ref 0 Take 5 tablets by mouth daily for 2 days, then take 4 tablets by mouth daily for 2 days, then take 3 tablets by mouth daily for 2 days, then take 2 tablets by mouth daily for 2 days, then take 1 tablets by mouth daily for 2 days, then stop. Prescribed by: DARIAN RANKIN on 10/26/21 1038 Tiotropium [place] (Spiriva) 18 Mcg Cap.w.dev, 1 CAP IH DAILY, #30 Ref 0 Prescribed by: AZUCENA PHIPPS D.O. on 10/25/16 1241 Last Taken: Unknown Dose on 10/22/21 1100 Last Action: Converted on 10/24/[address] MD [Vitamin D] , 5,000 MG PO DAILY, (Reported) Entered as Reported by: HUMBERTO BYRNE on 10/24/21 0614 Last Taken: Unknown Dose on 10/23/21 0800 Last Action: Last Taken Edited on 10/24/21 06 by HUMBERTO BYRNE Discontinued Medications Albuterol Sulfate (Proair Hfa Inhaler) 8.5 Gm Hfa.aer.ad, 1 PUFF INH PRN Q6HRS PRN for SHORTNESS OF BREATH, Ref 0 (Reported) Entered as Reported by: JOE COUCH RN on 01/25/19223 Last Taken: Unknown Dose on 10/23/21 0800 Last Action: Last Taken Edited on 10/24/21 0433 by LINDY BOWLING Fluticasone/Salmeterol (Advair 250-50 Diskus) 1 Each Disk.w.dev, 1 PUFF IH BID for asthma, #1 Ref 5 (Reported) Entered as Reported by: JOE COUCH RN on 01/25/19223 Last Action: Converted on 10/24/211200 by IGNA[address] MD Patient Instructions Patient Instructions 34 min fface to face Justicifation of Admission Dx: Justifications for Admission: Justification of Admission Dx: N/A DARIAN RANKIN MD Oct 26, 2021 10:42
[2021-10-26 11:00] VITALS: BP 140/86
--- NOTE | 2021-10-26 13:19 | NUR ---
SS following up with discharge planning. SS reviewed pt chart and discussed with pt RN. Pt is currently requiring oxygen at three liters nasal canula. COVID19 negative. SS was notified by pt's community facilitator that pt's insurance is no longer in network with pt's home oxygen company [employer]. Pt's test case developer reported that pt will need [facility], ; fax [phone], set up for oxygen. SS contacted [facility] and was notified that they need six minute walk and new orders for oxygen. Six minute walk ordered. Discharge orders for home healthcare received and phoned and faxed to [facility], ; fax [phone], [facility], ; fax [phone], and [facility], ; fax [phone]. SS will continue to follow for discharge planning . Addendum: 10/26/21 at 1644 by STEF SUNG Script received for oxygen. Six minute walk completed and was entered at 1626pm. Script and clinical phoned and faxed to [facility], ; fax [phone]. [facility] confirmed receipt of clinical and script but stated that since all information was not provided to them prior to 1600 they cannot provide a tank for home until tomorrow. [facility], [facility], and [facility] declined pt. Referral and discharge orders phoned and faxed to [facility] and [facility]. Pt's RN notified. SS will continue to follow
[2021-10-26 15:00] VITALS: BP 138/84
[2021-10-26] MEDS: ENOXAPARIN 40 MG/0.4 ML SYRINGE. SQ SCH (16:59)
[2021-10-26 19:33] VITALS: BP 140/80
[2021-10-26] MEDS ORDERED: predniSONE 20 MG TABLET PO ONE (21:00)
[2021-10-26 22:05] VITALS: BP 169/89
[2021-10-27 02:33] VITALS: BP 157/99
[2021-10-27 04:51] LABS: BASO % 0 % (0-3); EOS % 0 % (0-3); HEMATOCRIT 37.6 % (36.0-47.0); LYMPH # 0.5 x10^3/uL (1.0-4.8); LYMPH % 4 % (24-48); MEAN CORPUSCULAR HEMOGLOBIN 28 pg (25-35); MEAN CORPUSCULAR HGB CONC 32 g/dL (31-37); MEAN CORPUSCULAR VOLUME 87 fL (79-100); MONO # 0.3 x10^3/uL (0.0-1.1); MONO % 2 % (0-9); NEUT # 12.2 x10^3/uL (1.8-7.7); NEUT % 93 % (31-73); PLATELET COUNT 261 x10^3/uL (140-400); RED BLOOD COUNT 4.34 x10^6/uL (3.50-5.40); RED CELL DISTRIBUTION WIDTH 18.4 % (11.5-14.5); WHITE BLOOD COUNT 13.1 x10^3/uL (4.0-11.0)
[2021-10-27 05:08] LABS: CALCIUM 8.4 mg/dL (8.5-10.1); CREATININE 1.6 mg/dL (0.6-1.0); MAGNESIUM 1.9 mg/dL (1.8-2.4); POTASSIUM 3.4 mmol/L (3.5-5.1)
[2021-10-27] MEDS: PANTOPRAZOLE 40 MG TABLET.DR. PO SCH (05:40)
[2021-10-27 07:00] VITALS: BP 172/101
[2021-10-27] MEDS: IPRATRPIUM/ALBUTEROL 0.5/2.5MG 3 ML NEBU. NEB SCH (07:18)
[2021-10-27 08:32] VITALS: BP 172/101
[2021-10-27] MEDS: IPRATROPIUM/ALBUTEROL 20/100mcg/INH INHALER. INH SCH (08:32)
[2021-10-27] MEDS: FLUTICASONE/VILANTEROL 200/25 INHALER. INH SCH (09:33)
--- NOTE | 2021-10-27 10:22 | NUR ---
SS following up with discharge planning. SS reviewed pt chart and discussed with pt RN. Discharge order on the chart from yesterday for home with home healthcare. [facility] delivered oxygen tank to pt in room today and provided contact information to pt. Pt accepted on services with [facility], [phone]; [phone]. Pt's RN notified.
--- NOTE | 2021-10-27 10:42 | PDOC ---
[employer] PROGRESS NOTE Date of Service DOS: DATE: 10/27/21 TIME: 10:41 Chief Complaint Chief Complaint LATE ENTRY, pt seen 10/26, tried to DC, eval improved, Acute hypoxic respiratory failure requiring BiPAP support on admit, now on NC Acute COPD exacerbation MONISHA due to vasomotor nephropathy Pyuria History of Present Illness History of Present Illness taper the IV steroids to PO for DC O2 supplementation to maintain O2 saturation between 88 to 92% Continue IV fluids Combivent inhaler, nebs inh q4 Lovenox for DVT prophylaxis Protonix while on steroids GI prophylaxis ADA diet CODE STATUS full Discussed with RN and SW Vitals/I&O Vitals/I&O: Vital Signs Date Time Temp Pulse Resp B/P (MAP) Pulse Ox O2 Delivery O2 Flow Rate FiO2 10/27/21 08:32 120 172/101 10/27/21 07:19 98 Nasal Cannula 3.0 10/27/21 07:00 97.9 20 97.9 I & O 10/26/21 10/26/21 10/27/21 15:00 23:00 07:00 Intake Total 650 ml 400 ml 600 ml Output Total 1 ml Balance 650 ml 399 ml 600 ml Physical Exam General: Alert, Cooperative Heart: Normal S2 Lungs: Wheezing, Crackles Abdomen: No masses Extremities: No clubbing, No edema, Normal pulses, No tenderness/swelling Skin: No rashes Labs Labs: Laboratory Tests Test 10/27/21 04:30 White Blood Count 13.1 x10^3/uL (4.0-11.0) Red Blood Count 4.34 x10^6/uL (3.50-5.40) Hemoglobin 12.0 g/dL (12.0-15.5) Hematocrit 37.6 % (36.0-47.0) Mean Corpuscular Volume 87 fL (79-100) Mean Corpuscular Hemoglobin 28 pg (25-35) Mean Corpuscular Hemoglobin Concent 32 g/dL (31-37) Red Cell Distribution Width 18.4 % (11.5-14.5) Platelet Count 261 x10^3/uL (140-400) Neutrophils (%) (Auto) 93 % (31-73) Lymphocytes (%) (Auto) 4 % (24-48) Monocytes (%) (Auto) 2 % (0-9) Eosinophils (%) (Auto) 0 % (0-3) Basophils (%) (Auto) 0 % (0-3) Neutrophils # (Auto) 12.2 x10^3/uL (1.8-7.7) Lymphocytes # (Auto) 0.5 x10^3/uL (1.0-4.8) Monocytes # (Auto) 0.3 x10^3/uL (0.0-1.1) Eosinophils # (Auto) 0.0 x10^3/uL (0.0-0.7) Basophils # (Auto) 0.0 x10^3/uL (0.0-0.2) Sodium Level 141 mmol/L (136-145) Potassium Level 3.4 mmol/L (3.5-5.1) Chloride Level 101 mmol/L (98-107) Carbon Dioxide Level 31 mmol/L (21-32) Anion Gap 9 (6-14) Blood Urea Nitrogen 18 mg/dL (7-20) Creatinine 1.6 mg/dL (0.6-1.0) Estimated GFR (Cockcroft-Gault) 39.0 Glucose Level 148 mg/dL (70-99) Calcium Level 8.4 mg/dL (8.5-10.1) Magnesium Level 1.9 mg/dL (1.8-2.4) Assessment and Plan Assessmemt and Plan Problems Medical Problems: (1) CKD (chronic kidney disease) Status: Acute (2) COPD with exacerbation Status: Acute Comment Review of Relevant I have reviewed the following items donnie (where applicable) has been applied. Medications: Current Medications Medications (Trade) Dose Ordered Sig/Summer Route PRN Reason Start Time Stop Time Status Last Admin Dose Admin Prednisone (Prednisone) 40 mg 1X ONCE PO 10/26/21 21:00 10/26/21 21:01 DC 10/26/21 19:25 Justifications for Admission Other Justification COPD exacerbation DARIAN RANKIN MD Oct 27, 2021 10:42
[2021-10-27] MEDS ORDERED: POTASSIUM CHLORIDE 20 MEQ TABLET.ER. PO ONE (10:45)
== END 2021-10-27 10:52 | disposition home health service (06) | DRG 189 ==
LOC: ER 23:54 → 6 SOUTH 10-24 03:22
PROVIDERS: ADMIT Student in an Organized Health Care Education/Training Program; ATTEND Student in an Organized Health Care Education/Training Program
PROC: 5A09357 Assistance with Respiratory Ventilation, Less than 24 Consecutive Hours, Continuous Positive Airway Pressure (ICD-10-PCS; principal; 2021-10-24)
PROC: 5A09357 Assistance with Respiratory Ventilation, Less than 24 Consecutive Hours, Continuous Positive Airway Pressure (ICD-10-PCS; 2021-10-26)
DX: J96.01 Acute respiratory failure with hypoxia (principal); N17.0 Acute kidney failure with tubular necrosis; J44.1 Chronic obstructive pulmonary disease with (acute) exacerbation; E78.5 Hyperlipidemia, unspecified; F12.90 Cannabis use, unspecified, uncomplicated; I12.9 Hypertensive chronic kidney disease with stage 1 through stage 4 chronic kidney disease, or unspecified chronic kidney disease; N18.30 Chronic kidney disease, stage 3 unspecified; Z87.891 Personal history of nicotine dependence; Z90.710 Acquired absence of both cervix and uterus; Z20.822 Contact with and (suspected) exposure to COVID-19
CPT/HCPCS: 36415; 36600; 71045; 80048; 80053; 81001; 82550; 82805; 83605; 83735; 83880; 84100; 84484; 85007; 85025; 87040; 87086; 87426; 87428; 93005; 94618; 94640; 94660; 94760; 96361; 96374; 96375; J1100; J1650; J2060; J2920; J7030; J7040; J7512; U0003; 97535-GO; 99285-25; G0378